=== PATIENT | male | born 1935 | race Caucasian/White ===

== ENCOUNTER → 2016-05-28 | Outpatient (CLI) | payer MEDICARE, BC | END | disposition home or self-care (01) | LOC: GMAJ 10:24 | PROVIDERS: ATTEND Family Medicine | DX: N40.0 Benign prostatic hyperplasia without lower urinary tract symptoms (principal) ==

== ENCOUNTER → 2016-06-27 | Outpatient (CLI) | payer MEDICARE | END | disposition home or self-care (01) | LOC: GMAJ 13:01 | PROVIDERS: ATTEND Family Medicine | DX: N30.00 Acute cystitis without hematuria (principal) ==

== ENCOUNTER 2016-09-03 07:56 | Inpatient (IN) | payer MEDICARE ==
--- NOTE | 2016-09-03 08:39 | RAD ---
EXAM DESCRIPTION: Hip,Right 2 Views CLINICAL HISTORY: right hip pain, ext rotation after fall COMPARISON: None. IMPRESSION: Single AP view of the right hip shows a severely comminuted intertrochanteric fracture of the proximal right femur with proximal displacement of the distal fracture fragment. No second orthogonal view is provided. Patient is somewhat rotated on this exam. Electronically signed by: Agusto Colorado MD 09/03/2016 8:40 AM CDT Workstation: [id number]
--- NOTE | 2016-09-03 08:40 | RAD ---
EXAM DESCRIPTION: Pelvis CLINICAL HISTORY: 81 years Male, right hip pain, ext rotation after fall COMPARISON: None. FINDINGS: Comminuted intratrochanteric fracture right proximal femur with moderate varus angulation at the fracture site. No displacement observed. Bones hypodense indicating osteopenia or osteoporosis. IMPRESSION: Comminuted angulated intertrochanteric right femur fracture Electronically signed by: Dandy Gee MD 09/03/2016 8:40 AM CDT
--- NOTE | 2016-09-03 08:40 | RAD ---
EXAM DESCRIPTION: Chest,1 View CLINICAL HISTORY: preop COMPARISON: January 16, 2016 IMPRESSION: Single AP portable upright view of the chest shows enlargement of the cardiac silhouette without pulmonary vascular congestion. Lungs are normally aerated without acute appearing infiltrate or consolidation. Tortuosity of the thoracic aorta with calcifications of the aortic arch are seen. No obvious pleural effusion or pneumothorax is seen. Electronically signed by: Agusto Colorado MD 09/03/2016 8:40 AM CDT
[2016-09-03] MEDS ORDERED: SOD CHL 3% *HYPERTONIC* 500ML 200 ML IVS ONE (08:50)
[2016-09-03] MEDS ORDERED: cefTRIAXone SODIUM 1 GM in SODIUM CHL 0.9% 50ML MIN-BAG+ 50 ML IVPB ONE (08:57)
[2016-09-03] MEDS ORDERED: cefTRIAXone SODIUM 1 GM VIAL ONE ×2 (09:05→19:14)
[2016-09-03] MEDS ORDERED: SODIUM CHL 0.9% 50ML MIN-BAG+ 50 ML IVPB ONE ×2 (09:05→19:14)
[2016-09-03] MEDS ORDERED: HYDROmorphone HCL INJ 2 MG/ML VIAL IV SCH (09:30)
--- NOTE | 2016-09-03 09:31 | ED.PDOC ---
History of Present Illness - General Chief Complaint: Lower Extremity Injury Stated Complaint: fall Time Seen by Provider: 09/03/16 08:02 Source: patient, family Exam Limitations: no limitations - History of Present Illness Initial Comments: The patient is a 81-year-old male presenting to the emergency r room secondary to a fall at home. He simply tripped and fell. He has some shortening and external rotation of the right lower extremity. Sensation is at his baseline. He appears to be vascularly intact. He does have significant pain. No other obvious injuries. He did have a significant urinary tract infection one month ago. Timing/Duration: 1 hour Severity: severe Improving Factors: immobilization Worsening Factors: movement Associated Symptoms: denies symptoms Allergies/Adverse Reactions: Allergies NO KNOWN ALLERGY Allergy (Verified 01/06/16 12:48) Home Medications: Ambulatory Orders Aspirin [Aspirin EC Low Dose] 81 mg PO DAILY 01/06/16 Lisinopril 20 mg PO BEDTIME 01/06/16 Metoprolol Tartrate 50 mg PO BIDFD 01/06/16 Omeprazole 40 mg PO DAILY 01/06/16 Pravastatin Sodium 10 mg PO DAILY 01/06/16 Tamsulosin [Flomax] 0.4 mg PO BEDTIME 01/06/16 Zolpidem Tartrate 10 mg PO BEDTIME 01/06/16 Review of Systems - Review of Systems Constitutional: States: no symptoms reported EENTM: States: no symptoms reported Respiratory: States: no symptoms reported Cardiology: States: no symptoms reported Gastrointestinal/Abdominal: States: no symptoms reported Genitourinary: States: frequency Musculoskeletal: States: see HPI, other - right hip pain. Skin: States: no symptoms reported Neurological: States: other - he is mildly drowsy from the morphine given by EMS Endocrine: States: no symptoms reported All other Systems: No Change from Baseline Past Medical History (General) - Patient Medical History Hx Seizures: No Hx Stroke: Yes - TIA Hx Dementia: No Hx Asthma: No Hx of COPD: No Hx Cardiac Disorders: No Hx Congestive Heart Failure: No Hx Pacemaker: No Hx Hypertension: Yes Hx Thyroid Disease: No Hx Diabetes: No Hx Gastroesophageal Reflux: Yes Hx Renal Disease: No Hx Cancer: No Hx of HIV: No Hx Hepatitis C: No Hx MRSA: No Surgical History: tonsillectomy - Vaccination History Hx Tetanus, Diphtheria Vaccination: No Hx Influenza Vaccination: No Hx Pneumococcal Vaccination: No - Social History Hx Tobacco Use: Yes Hx Chewing Tobacco Use: Yes - Quit 1 yr. ago Hx Alcohol Use: Yes Hx Substance Use: No Hx Substance Use Treatment: No Hx Depression: No Hx Physical Abuse: No Hx Emotional Abuse: No Hx Suspected Abuse: No Family Medical History - Family History Father Living Status: Cause of : stroke Hx Family Stroke: Yes - TIA Physical Exam - Physical Exam General Appearance: Alert, Obvious distress Eye Exam: bilateral normal Ears, Nose, Throat: hearing grossly normal, normal ENT inspection, normal pharynx Neck: non-tender, full range of motion, supple Respiratory: chest non-tender, lungs clear, normal breath sounds, no respiratory distress, no accessory muscle use Cardiovascular/Chest: normal peripheral pulses, regular rate, rhythm, no edema - occasional irregular beats Peripheral Pulses: radial,right: 2+, radial,left: 2+, dorsalis pedis,right: 2+, dorsalis pedis,left: 2+, posterior tibialis,right: 1+, posterior tibialis,left: 1+ Gastrointestinal/Abdominal: non tender, soft Rectal Exam: deferred Back Exam: normal inspection, no CVA tenderness, no vertebral tenderness Extremity: no pedal edema, no calf tenderness, normal capillary refill, other - severe pain with any movement of the right No skin laceration. There is external rotation and some shorteningof the right lower extremity. Neurologic: cryptozoologist II-XII nml as tested, no motor/sensory deficits, alert, normal mood/affect, oriented x 3 Skin Exam: normal color Comments: Vital Signs - 24 hr 09/03/16 08:12 Temperature 97.1 F L Pulse Rate [ 84 left brachial] Respiratory 18 Rate Blood Pressure 152/82 [left brachial] O2 Sat by Pulse 97 Oximetry Progress - Progress Progress: 09/03/16 09:48 the patient is a 81-year-old male presenting to the emergency room due to a fall at home giving him a right intertrochanteric femur fracture. He is neurovascularly intact at this time. He does have hyponatremia and is receiving 3% saline slowly for a total of 200 cc's. He will need to have a sodium rechecked. He will be allowed a full liquid diet for now. Surgery is planned for tomorrow. Occasional PVCs on EKG. Recommend telemetry monitoring today. Urinalysis is pending. He has had a recent infection. He did receive 1 g of Rocephin IV preoperatively today.. He has required narcotics for pain control. Admit for above issues and preparation for surgery tomorrow. Hold Plavix. - Results/Orders Results/Orders: Laboratory Tests 09/03/16 09/03/16 09/03/16 08:15 08:15 08:15 WBC 14.8 H RBC 4.69 L Hgb 15.5 Hct 44.8 MCV 95.5 H MCH 33.0 H MCHC 34.6 RDW 13.0 Plt Count 137 MPV 7.7 Absolute Neuts (auto) 13.80 H Absolute Lymphs (auto) 0.40 L Absolute Monos (auto) 0.60 Absolute Eos (auto) 0.00 Absolute Basos (auto) 0.00 Neutrophils % 92.8 H Lymphocytes % 2.6 L Monocytes % 4.4 Eosinophils % 0.0 L Basophils % 0.2 PT 12.9 H INR 1.140 PTT (SP) 25.8 Sodium 125 L Potassium 3.6 Chloride 92 L Carbon Dioxide 27 Anion Gap 9.6 L BUN 15 Creatinine 0.91 BUN/Creatinine Ratio 16.5 Random Glucose 109 H Serum Osmolality 252.9 L* Calcium 9.3 Total Bilirubin 1.6 H AST 27 ALT 17 Alkaline Phosphatase 64 Serum Total Protein 6.8 Albumin 4.0 Globulin 2.8 Albumin/Globulin Ratio 1.4 urinalysis is pending at this time. Chest x-ray shows mild cardiomegaly but no overt fluid overload and no infiltrates. Healing previous fractures. occasional PVCs on EKG. Normal axis. No acute ST segment changes concerning for ischemia when compared with previous EKGs. Normal [place] and QT intervals. Departure - Departure Clinical Impression: Hyponatremia Fracture of femur, intertrochanteric, closed Qualifiers: Encounter type: initial encounter Laterality: right Qualified Code(s): S72.141A - Displaced intertrochanteric fracture of right femur, initial encounter for closed fracture Disposition: Admit Patient Referrals: Alan Willis MD [Primary Care Provider] - 1-2 Weeks Home Medications: Ambulatory Orders Aspirin [Aspirin EC Low Dose] 81 mg PO DAILY 01/06/16 Lisinopril 20 mg PO BEDTIME 01/06/16 Metoprolol Tartrate 50 mg PO BIDFD 01/06/16 Omeprazole 40 mg PO DAILY 01/06/16 Pravastatin Sodium 10 mg PO DAILY 01/06/16 Tamsulosin [Flomax] 0.4 mg PO BEDTIME 01/06/16 Zolpidem Tartrate 10 mg PO BEDTIME 01/06/16 Decision To Admit - Decistion To Admit Decision to Admit Reason: Accidental Injury Decision to Admit Date: 09/03/16 Decision to Admit Time: 09:51
--- NOTE | 2016-09-03 09:52 | HP ---
SUPERVISING PHYSICIAN: Alan Willis M.D. CHIEF COMPLAINT: Right hip pain. HISTORY OF PRESENT ILLNESS: This is a 81 year-old male patient who was in his usual state of health when early this morning he woke up before his and had gotten some coffee. She was in the other room and he called her from his bedroom and asked if she would help him get up, that he had fallen onto the floor. She went into the bedroom and he was on the floor and she helped him get up to a sitting position in the bed. At this point he had no complaints of any pain. He had just slipped to the ground. As he was sitting on the end of the bed, he slipped off and fell onto his right side and at this point his stated he was in severe pain on the right hip. She called her son who then told her to call the ambulance and he was brought to the E. R. In the E. R., hip x-rays showed per radiology interpretation a severely comminuted intertrochanteric fracture of the proximal right femur with proximal displacement of the distal fracture fragment. His pelvis x-ray per radiology interpretation shows a comminuted angulated intertrochanteric right femur fracture. His chest x-ray shows enlargement of the cardiac silhouette without pulmonary vascular congestion. The lungs are normally aerated without acute- appearing infiltrate or consolidation, tortuosity of the thoracic aorta with calcifications of the aortic arch are seen. No obvious pleural effusions or pneumothorax is seen. His lab shows sodium 125 but he has a history of hyponatremia with a baseline of about 128. Potassium 3.6, chloride 92, BUN 15, creatinine 0.91, glucose 109, serum osmolality 252. He also had some leukocytosis with WBCs of 14.8, hemoglobin 15.5, hematocrit 44.8, platelet count was 137. He also had a urinary tract infection. He was given Ceftriaxone in the Emergency Room as well as Hydromorphone for pain. He also was nauseated several times and he received Zofran. Dr. Sapp called and he reviewed his case from the Emergency Room, and he agreed to be consulted on this. The patient was admitted to the hospital. PAST MEDICAL HISTORY: 1. Seasonal allergies. 2. Benign prostatic hypertrophy. 3. Gastroesophageal reflux disease. 4. Hyperlipidemia. 5. Hypertension. 6. Osteoarthritis. PAST SURGICAL HISTORY: 1. Tonsillectomy and adenoidectomy as a child. 2. Colonoscopy. ALLERGIES: CIPRO. FAMILY HISTORY: Noncontributory. SOCIAL HISTORY: He is retired. He is . He has 3 children. He quit smoking over 20 years ago and he quit chewing tobacco approximately 5 years ago. REVIEW OF SYSTEMS: Negative except as per the History of Present Illness. His states that earlier he did have some bilateral shoulder discomfort over the last few days. He actually took some Advil yesterday for it. PHYSICAL EXAMINATION: VITAL SIGNS: He is afebrile, pulse rate 71, blood pressure 125/62, respiratory rate 18, O2 sats are 95% on room air. GENERAL: This is a 81 year-old male patient who is lying in his hospital bed. At this point he is in no acute distress. HEENT: Normocephalic and atraumatic. Pupils are equal and reactive. Oropharynx is clear. NECK: Supple without mass. There is no jugular venous distention. CHEST: Essentially clear to auscultation bilaterally. There is equal rise and fall of the chest with inspiration and expiration. CARDIOVASCULAR: Regular rate and rhythm. ABDOMEN: Soft, nondistended, non-tender. Bowel sounds are positive. EXTREMITIES: No cyanosis, clubbing or edema. Bilateral pedal pulses are palpable at +2. Right hip is slightly rotated outward and it is tender to palpation. NEUROLOGIC: He is awake, alert and oriented times three. LABORATORY: Labs and films are as per the History of Present Illness. ASSESSMENT: 1. Intertrochanteric fracture of the right femur. 2. Chronic hyponatremia with a baseline sodium of 128. 3. Urinary tract infection. 4. Leukocytosis most likely from urinary tract infection but maybe worsened due to the fracture. 5. Benign prostatic hypertrophy. 6. Gastroesophageal reflux disease. 7. Hypertension. 8. Hyperlipidemia. PLAN: We will admit the patient to the hospital. I have initiated admission orders. We will also initiate Dr. Sapp's preoperative orders. He received some hypertonic saline in the Emergency Room and I will presently put him on some D5 NS with 20 of K at 125. I will repeat his labs in the morning. He can have a regular diet at this time, but I will make him NPO at midnight. He has a Bustamante catheter in place. I have consulted Dr. Sapp. I will give him Rocephin for his urinary tract infection. I have also ordered some blood cultures to make sure there is not something else going on. Otherwise we will continue to monitor the patient closely and followup as needed. Dr. Willis is the collaborating physician and available for consultation. #[id number] [facility]
[2016-09-03] MEDS ORDERED: ONDANSETRON INJ 4 MG/2 ML VIAL IV PRN (10:39)
[2016-09-03] MEDS ORDERED: HYDROmorphone HCL INJ 2 MG/ML VIAL ONE ×3 (10:58→23:14)
[2016-09-03] MEDS ORDERED: HYDROmorphone HCL INJ 2 MG/ML VIAL IV ONE (11:00)
[2016-09-03] MEDS ORDERED: ONDANSETRON INJ 4 MG/2 ML VIAL IV ONE (11:00)
[2016-09-03] MEDS: ORPHENADRINE CITRATE 30 MG/ML AMP IV ONE ×2 (12:38→15:18)
[2016-09-03] MEDS ORDERED: ORPHENADRINE CITRATE 30 MG/ML AMP ONE (15:16)
[2016-09-03] MEDS ORDERED: SODIUM CHLORIDE 0.9% (FLUSH) 10 ML SYG IV PRN (15:38)
[2016-09-03] MEDS ORDERED: VANCOMYCIN HCL INJ 1,000 MG in SODIUM CHLORIDE 0.9% 250ML 250 ML IVPB ONE (16:21)
[2016-09-03] MEDS ORDERED: ceFAZolin SODIUM 2 GM in SODIUM CHLORIDE 0.9% 100ML 100 ML IVPB ONE (16:21)
[2016-09-03] MEDS: HYDROmorphone HCL INJ 2 MG/ML VIAL IV PRN ×2 (16:25→23:15)
[2016-09-03] MEDS: PANTOPRAZOLE SODIUM IV 40 MG VIAL IV SCH (16:25)
[2016-09-03] MEDS: IV SET AND CAP CHANGE INJ INJ SCH (17:09)
[2016-09-03] MEDS: cefTRIAXone SODIUM 1 GM in SODIUM CHL 0.9% 50ML MIN-BAG+ 50 ML IVPB SCH (20:13)
[2016-09-04] MEDS: KCL 20MEQ/D5NS 1,000 ML IVS PRN ×3 (00:27→21:31)
[2016-09-04] MEDS ORDERED: HYDROmorphone HCL INJ 2 MG/ML VIAL ONE (02:21)
[2016-09-04] MEDS: HYDROmorphone HCL INJ 2 MG/ML VIAL IV PRN ×7 (02:33→20:28)
[2016-09-04] MEDS ORDERED: ePHEDrine SULF 50 MG/ML ONE (07:00)
[2016-09-04] MEDS ORDERED: PROPOFOL 200 MG/20 ML VIAL IV ONE (07:00)
[2016-09-04] MEDS ORDERED: SODIUM CHLORIDE 0.9% 50 ML VIAL ONE (07:00)
[2016-09-04] MEDS ORDERED: OMEPRAZOLE CAP 20 MG CAP PO ONE (07:41)
[2016-09-04] MEDS ORDERED: METOPROLOL TARTRATE 50 MG TAB PO ONE (07:43)
[2016-09-04] MEDS ORDERED: fentaNYL CITRATE INJ 50 MCG/ML AMP ONE (07:47)
[2016-09-04] MEDS ORDERED: SODIUM CHLORIDE 0.9% 1000ML 1,000 ML ONE ×2 (07:48→11:56)
[2016-09-04] MEDS ORDERED: SODIUM CHL 0.9% 50ML MIN-BAG+ 50 ML IVPB ONE ×2 (07:48→19:43)
[2016-09-04] MEDS ORDERED: cefTRIAXone SODIUM 1 GM VIAL ONE ×2 (07:49→19:43)
[2016-09-04] MEDS ORDERED: ceFAZolin SODIUM 1 GM VIAL ONE ×2 (07:50→09:10)
[2016-09-04] MEDS ORDERED: VANCOMYCIN HCL INJ 1,000 MG VIAL IVPB ONE ×2 (07:51→09:10)
[2016-09-04] MEDS ORDERED: SODIUM CHLORIDE 0.9% 250ML 250 ML ONE (07:53)
[2016-09-04] MEDS ORDERED: SODIUM CHLORIDE 0.9% 50ML 50 ML ONE (07:54)
[2016-09-04] MEDS ORDERED: SODIUM CHLORIDE 0.9% 100ML 100 ML IVPB ONE (07:56)
[2016-09-04] MEDS ORDERED: SODIUM CHLORIDE 0.9% IVPB SCH (09:00)
[2016-09-04] MEDS ORDERED: CEFTRIAXONE SODIUM IVPB SCH (09:00)
[2016-09-04] MEDS: cefTRIAXone SODIUM 1 GM in SODIUM CHL 0.9% 50ML MIN-BAG+ 50 ML IVPB SCH ×2 (10:09→20:32)
[2016-09-04] MEDS ORDERED: BUPIVACAINE 0.25% W/EPI 50 ML VIAL INJ ONE (10:10)
[2016-09-04] MEDS ORDERED: BISACODYL SUPPOSITORY 10 MG PR PRN (10:55)
[2016-09-04] MEDS ORDERED: BENZOCAINE-MENTH LOZ (CEPACOL) 1 EA LOZ MT PRN (10:55)
[2016-09-04] MEDS ORDERED: ALUMINUM & MAGNESIUM HYDROXIDE 30 ML UD PO PRN (10:55)
[2016-09-04] MEDS ORDERED: ACETAMINOPHEN 325 MG TAB PO PRN (10:55)
[2016-09-04] MEDS ORDERED: ZOLPIDEM TARTRATE 5 MG TAB PO PRN (10:55)
[2016-09-04] MEDS ORDERED: ENOXAPARIN SODIUM 40 MG/0.4 ML SYG SUBCU SCH (11:00)
--- NOTE | 2016-09-04 11:34 | OP ---
DATE OF PROCEDURE: 09/04/16 PREOPERATIVE DIAGNOSIS: 1. Right hip fracture. POSTOPERATIVE DIAGNOSIS: 1. Right hip fracture. PROCEDURE: 1. Gamma nail, right hip. SURGEON: Aneesh Sapp MD. HAND FRAME SURGICAL ELASTIC KNITTER: Omega Vasquez CST, SA-C. ANESTHESIA: General. COMPLICATIONS: None. FINDINGS: Intertrochanteric fracture of the right hip. INDICATION: Mr. Moser has a history of falling the day of presentation. He had the acute onset of pain at that point. X-rays in the Emergency Room revealed an intertrochanteric fracture and he was admitted. I was consulted and I discussed with him and his the risks, benefits and alternatives to operative therapy. After that discussion, informed consent was obtained for Gamma nailing. PROCEDURE: The patient was brought to the Operating Room and placed in the supine position. General anesthesia was administered and the patient was placed on the fracture table. The fracture was provisionally reduced under fluoroscopic imaging and after reduction, the leg and hemipelvis were sterilely prepped and draped. An incision was made just proximal to the greater trochanter and dissection was carried through the iliotibial band and down to the greater trochanter. A starting pin was placed and a one-step reamer was used to open the femoral canal. A 125 degree angled Gamma nail was inserted into the canal to the appropriate level. A guide pin was placed from the lateral cortex into the femoral head. The appropriate length compression screw was measured and inserted with the placement guided under direct imaging. Following that, the distal locking screw was drilled, measured, and placed under imaging. The proximal locking screw was placed through the outrigger into the top of the nail and the outrigger removed. The final construct was imaged and the wounds were thoroughly irrigated, followed by closure with Monocryl suture. Sterile dressings were placed. The patient was awoken from anesthesia and taken to the Recovery Room. POSTOPERATIVE INSTRUCTIONS: He will be partial weight-bearing on postoperative day 1. [facility][id number] [facility]
--- NOTE | 2016-09-04 12:41 | RAD ---
EXAM DESCRIPTION: Hip,Right 2 Views CLINICAL HISTORY: post-op COMPARISON: None Available. TECHNIQUE: AP/frog leg lateral FINDINGS: Right hip is internally fixed with a short intramedullary tod and interlocking threaded pin into the femoral head with a separate lesser trochanteric fragment that is not internally fixed. Alignment is anatomic with the threaded pin well-positioned in the central femoral head. IMPRESSION: Satisfactory internal fixation of the right hip with separate lesser trochanteric fragment. Electronically signed by: Joey Chapin MD 09/04/2016 12:41 PM CDT
[2016-09-04] MEDS: PANTOPRAZOLE SODIUM IV 40 MG VIAL IV SCH (16:18)
--- NOTE | 2016-09-04 16:37 | PN ---
SUPERVISING PHYSICIAN: Joey Turner MD DATE: 09/04/16 SUBJECTIVE: The patient is being seen postoperatively after a gamma nail to the right hip performed earlier today. He is awake and alert. He has no complaints of shortness of breath, coughing, chest pain, abdominal pain, nausea or vomiting. His only complaint is that he has pain to that right hip but the pain is being well controlled with the pain medication he is receiving right now. OBJECTIVE: VITAL SIGNS: He is afebrile. Heart rate is 91, blood pressure 142/81, respiratory rate 16. 02 saturation 95%. CHEST: Clear to auscultation bilaterally. CARDIAC: Regular rate and rhythm. ABDOMEN soft, nondistended, non-tender. Bowel sounds are somewhat hypoactive. EXTREMITIES: Bilateral pedal pulses are palpable at +2. He has a dressing to his right lateral hip that is dry and intact. NEUROLOGICAL: He is awake, alert, and oriented x3. LABORATORY: WBC 10.2, hemoglobin 12.8, hematocrit 37.5. Platelet count 120,000 , sodium 130 but his baseline sodium is about 128, potassium 4.2, chloride 97, carbon dioxide 30, BUN 13, creatinine 0.62. Preliminary urine culture shows gram negative rods. All other labs and films have been reviewed via the EMR. ASSESSMENT: 1. Intertrochanteric fracture of the right femur.status post gamma nail to the right hip, postoperative day #O, surgical intervention being performed by Dr. Sapp, orthopedic surgeon. 2. Chronic hyponatremia with a baseline sodium of 128. 3. Urinary tract infection, present culture showing gram positive rods. 4. Leukocytosis most likely from urinary tract infection that has now stabilized. 5. Benign prostatic hypertrophy. 6. Gastroesophageal reflux disease. 7. Hypertension. 8. Hyperlipidemia. PLAN: We will continue present supportive care. All of his home medications have been started. I will repeat his routine lab in the morning. I will defer all his orthopedic issues to Dr. Sapp. We will start physical therapy for strengthening and conditioning tomorrow. I have encouraged good pulmonary toilet. Dr. Turner is the collaborating physician available for consultation. #[id number] [facility]
[2016-09-04] MEDS: METOPROLOL TARTRATE 50 MG TAB PO SCH (16:38)
--- NOTE | 2016-09-04 16:41 | RAD ---
EXAM DESCRIPTION: Pelvis,2 or More Views CLINICAL HISTORY: post op COMPARISON: September 03, 2016 IMPRESSION: AP neutral and frog-leg lateral views of the pelvis are obtained. Exam shows placement of intramedullary tod with distal locking screw and gamma nail fixation of a comminuted intertrochanteric fracture of the right hip. Fractures appear in improved anatomic alignment. There is mild displacement of the lesser trochanter fracture. Soft tissue emphysema from recent surgery is seen. Mild osteoarthritic changes of the hips are seen bilaterally. Electronically signed by: Agusto Colorado MD 09/04/2016 4:41 PM CDT
[2016-09-04] MEDS ORDERED: TAMSULOSIN 0.4 MG CAP ONE (19:43)
[2016-09-04] MEDS ORDERED: ENOXAPARIN SODIUM 30 MG/0.3 ML SYG SUBCU ONE (19:43)
[2016-09-04] MEDS ORDERED: ATORVASTATIN 20 MG TAB PO ONE (19:43)
[2016-09-04] MEDS: TAMSULOSIN 0.4 MG CAP PO SCH (20:30)
[2016-09-04] MEDS: LISINOPRIL 10 MG TAB PO SCH (20:35)
[2016-09-04] MEDS: ENOXAPARIN SODIUM 30 MG/0.3 ML SYG SUBCU SCH (22:55)
[2016-09-05] MEDS: KCL 20MEQ/D5NS 1,000 ML IVS PRN (06:07)
[2016-09-05] MEDS: METOPROLOL TARTRATE 50 MG TAB PO SCH ×2 (07:54→17:09)
[2016-09-05] MEDS: HYDROmorphone HCL INJ 2 MG/ML VIAL IV PRN ×3 (07:55→18:39)
--- NOTE | 2016-09-05 07:57 | PN ---
DATE: 09/05/16 SUBJECTIVE: Mr. Moser is doing well. He has some pain that is about at a 3. OBJECTIVE: Afebrile. Vital signs stable. Dressings are clean, dry, and intact. ASSESSMENT: Status post Gamma nail. PLAN: The plan at this point is for him to begin toe-touch weight-bearing today. #[id number] [facility]
[2016-09-05] MEDS ORDERED: cefTRIAXone SODIUM 1 GM VIAL ONE ×2 (08:41→19:26)
[2016-09-05] MEDS ORDERED: SODIUM CHL 0.9% 50ML MIN-BAG+ 50 ML IVPB ONE ×2 (08:41→19:25)
[2016-09-05] MEDS: cefTRIAXone SODIUM 1 GM in SODIUM CHL 0.9% 50ML MIN-BAG+ 50 ML IVPB SCH ×2 (08:53→20:30)
[2016-09-05] MEDS ORDERED: NON-FORMULARY MEDICATION 1 EA MIS (Rosuvastatin Calcium [Crestor] 10 MG) PO SCH (09:00)
[2016-09-05] MEDS: ATORVASTATIN 20 MG TAB PO SCH (09:43)
[2016-09-05] MEDS: CLOPIDOGREL 75 MG TAB PO SCH (09:43)
[2016-09-05] MEDS: ENOXAPARIN SODIUM 30 MG/0.3 ML SYG SUBCU SCH ×2 (11:42→23:21)
[2016-09-05] MEDS: SODIUM CHLORIDE 0.9% (FLUSH) 10 ML SYG IV SCH ×2 (11:42→20:30)
--- NOTE | 2016-09-05 13:44 | PN ---
SUPERVISING PHYSICIAN: Alan Willis MD DATE: 09/05/16 SUBJECTIVE: The patient is laying in bed this morning just having finished working with physical therapy. He does remain confused, but very pleasant. He has been trying to pull his Bustamante out and his IVs at times. He remains afebrile. OBJECTIVE: VITAL SIGNS: Temperature 98.4. Pulse 82. Blood pressure 148/66. Respirations 16. Saturation 95% on room air. I&Os show positive balance of 2896 with 4121 in, 1225 out. Weight 88.3. Kg. CHEST: Lungs clear to auscultation bilaterally. HEART: Regular rate and rhythm. ABDOMEN: Soft, nontender. Positive bowel sounds. EXTREMITIES: There is dressing overlying the right hip, which is clean and dry. Pulses distally are strong bilaterally at 2+. NEUROLOGIC: Alert and awake, but confused to location. LABORATORY: Hemoglobin 11.1, hematocrit 32.0, platelet count 107,000, white count 10.8, differential showing a left shift. Chemotherapy-responsive show continued hyponatremia at 126, potassium normal at 3.9, BUN 9, creatinine 0.5, glucose 129, osmolality 253. Liver functions within normal limits for just a slightly elevated total bilirubin at 1.1. MICROBIOLOGY: Final urine culture results showed Escherichia coli from the urine that was mcdermott sensitive with the patient being on Rocephin. Blood cultures remain negative, 2 sets after 24 hours. ASSESSMENT: 1. Intertrochanteric fracture of the right femur.status post gamma nail to the right hip, postoperative day #1, surgical intervention being performed by Dr. Sapp, orthopedic surgeon. 2. Chronic hyponatremia with a baseline sodium of 128, appearing to be stable. 3. Urinary tract infection, final culture resulting showing Escherichia coli that was mcdermott sensitive, the patient remaining on antibiotics to include Rocephin. 4. Leukocytosis, secondary to underlying urinary tract infection and acute fracture, now resolved. 5. Benign prostatic hypertrophy. 6. Gastroesophageal reflux disease. 7. Hypertension. 8. Hyperlipidemia. PLAN: We will continue to follow the patient medically as he progresses through his physical therapy and strengthening efforts. We will continue with pulmonary toiletry to prevent complications. The plan is to remove the Bustamante today as he has been trying to remove this and to prevent any further trauma. We will closely monitor and should he show problems voiding, certainly we will need to replace the Bustamante. The anticipation is that the patient will go to Swing Bed likely Friday or Friday. Until then, we will continue to monitor the patient closely and treat appropriately. [facility][id number] [facility]
[2016-09-05] MEDS: PANTOPRAZOLE SODIUM IV 40 MG VIAL IV SCH (16:52)
[2016-09-05] MEDS: TAMSULOSIN 0.4 MG CAP PO SCH (20:30)
[2016-09-05] MEDS: LISINOPRIL 10 MG TAB PO SCH (20:30)
[2016-09-06] MEDS: HYDROmorphone HCL INJ 2 MG/ML VIAL IV PRN ×5 (00:24→13:45)
[2016-09-06] MEDS ORDERED: cefTRIAXone SODIUM 1 GM VIAL ONE ×2 (07:56→19:07)
[2016-09-06] MEDS ORDERED: SODIUM CHL 0.9% 50ML MIN-BAG+ 50 ML IVPB ONE ×2 (07:56→19:07)
[2016-09-06] MEDS: METOPROLOL TARTRATE 50 MG TAB PO SCH ×2 (08:15→17:19)
[2016-09-06] MEDS: cefTRIAXone SODIUM 1 GM in SODIUM CHL 0.9% 50ML MIN-BAG+ 50 ML IVPB SCH ×2 (09:05→20:13)
[2016-09-06] MEDS: SODIUM CHLORIDE 0.9% (FLUSH) 10 ML SYG IV SCH ×2 (09:06→20:13)
[2016-09-06] MEDS: ATORVASTATIN 20 MG TAB PO SCH (09:06)
[2016-09-06] MEDS: CLOPIDOGREL 75 MG TAB PO SCH (09:06)
[2016-09-06] MEDS: ENOXAPARIN SODIUM 30 MG/0.3 ML SYG SUBCU SCH ×2 (11:38→23:57)
[2016-09-06] MEDS: MAGNESIUM HYDROXIDE 30 ML UD PO PRN (11:38)
--- NOTE | 2016-09-06 13:36 | PN ---
SUPERVISING PHYSICIAN: Alan Willis MD DATE: 09/06/16 SUBJECTIVE: The patient is doing much better today. He is much more alert and oriented. His says he is back to his baseline status. He has been afebrile. He says his pain has been fairly well controlled. He has actually be up to the chair once. OBJECTIVE: VITAL SIGNS: Temperature 97.8. Pulse 89. Blood pressure 148/76. Respirations 18. Saturation 99% on room air. CHEST: Lungs clear to auscultation bilaterally. HEART: Regular rate and rhythm. ABDOMEN: Soft, nontender. Positive bowel sounds. EXTREMITIES: No cyanosis, clubbing or edema. Right hip has Steri-Strips in place with no obvious drainage and appears to be healing without any complications. Pulses distally are strong. Capillary refill is brisk. NEUROLOGIC: Alert and oriented times three today. LABORATORY: Chemistries show persistent low sodium of 126 with potassium 4.0, BUN 13, creatinine 0.66. Glucose 113. Osmolality remains low at 254. Calcium 8.4. MICROBIOLOGY: Blood culture remain negative after 48 hours and final culture results as mentioned previously showed E. coli that was mcdermott sensitive. ASSESSMENT: 1. Intertrochanteric fracture of the right femur.status post Gamma nail to the right hip, postoperative day #2, surgical intervention being performed by Dr. Sapp, orthopedic surgeon. 2. Chronic hyponatremia with a baseline sodium of 128, appearing to be stable. 3. Urinary tract infection, final culture resulting showing Escherichia coli that was mcdermott sensitive, the patient remaining on antibiotics to include Rocephin. 4. Leukocytosis, resolved, felt to be secondary to underlying acute trauma and underlying urinary tract infection. 5. Benign prostatic hypertrophy without any complications. 6. Gastroesophageal reflux disease. 7. Hypertension. 8. Hyperlipidemia. PLAN: We will continue to follow the patient as he progresses through his rehabilitation efforts. His Bust[place]ante catheter was removed without any complications and he has been able to urinate without any trouble. He remained on antibiotic therapy accordingly with anticipation of going to Swing Bed more likely on Friday. Once on Swing Bed, given the mcdermott sensitivity of the E. coli in his urine, he can be transitioned to p.o. medications. Until then, we will continue with parenteral antibiotic to include Rocephin. Until discharge to Swing Bed, we will continue to monitor the patient closely and treat appropriately. [facility][id number] [facility]
[2016-09-06] MEDS ORDERED: HYDROcodone 5MG/APAP 325MG 1 EA TAB PO PRN (13:49)
[2016-09-06] MEDS ORDERED: HYDROcodone 5MG/APAP 325MG 1 EA TAB ONE (13:57)
[2016-09-06] MEDS: IV SET AND CAP CHANGE INJ INJ SCH (17:20)
[2016-09-06] MEDS: HYDROcodone 7.5MG/APAP 325MG 1 EA TAB PO PRN (19:29)
[2016-09-06] MEDS: TAMSULOSIN 0.4 MG CAP PO SCH (20:13)
[2016-09-06] MEDS: LISINOPRIL 10 MG TAB PO SCH (20:13)
[2016-09-06] MEDS: CYCLOBENZAPRINE HCL 10 MG TAB PO PRN (21:00)
[2016-09-07] MEDS: HYDROcodone 7.5MG/APAP 325MG 1 EA TAB PO PRN ×5 (00:03→23:48)
[2016-09-07] MEDS ORDERED: SODIUM CHL 0.9% 50ML MIN-BAG+ 50 ML IVPB ONE ×2 (07:54→19:33)
[2016-09-07] MEDS ORDERED: cefTRIAXone SODIUM 1 GM VIAL ONE ×2 (07:55→19:33)
[2016-09-07] MEDS: METOPROLOL TARTRATE 50 MG TAB PO SCH ×2 (08:10→17:00)
[2016-09-07] MEDS: CYCLOBENZAPRINE HCL 10 MG TAB PO PRN ×2 (08:10→20:00)
[2016-09-07] MEDS: ATORVASTATIN 20 MG TAB PO SCH (08:35)
[2016-09-07] MEDS: CLOPIDOGREL 75 MG TAB PO SCH (08:35)
[2016-09-07] MEDS: cefTRIAXone SODIUM 1 GM in SODIUM CHL 0.9% 50ML MIN-BAG+ 50 ML IVPB SCH ×2 (08:35→20:56)
[2016-09-07] MEDS: SODIUM CHLORIDE 0.9% (FLUSH) 10 ML SYG IV SCH ×2 (09:04→20:56)
[2016-09-07] MEDS: PANTOPRAZOLE SODIUM TAB 40 MG PO SCH (10:54)
[2016-09-07] MEDS: ENOXAPARIN SODIUM 30 MG/0.3 ML SYG SUBCU SCH ×2 (10:54→23:22)
--- NOTE | 2016-09-07 14:04 | PN ---
DATE: 09/06/16 SUBJECTIVE: He is doing well. He is having moderate pain. OBJECTIVE: He is afebrile. Vital signs are stable. Wound is clean. There are no signs or symptoms of infection. ASSESSMENT: 1. Status post gamma nail PLAN: The plan at this point is for continued partial weightbearing. We will progress that as both symptoms and healing improve. [facility][id number] [facility]
--- NOTE | 2016-09-07 14:18 | PN ---
DATE: 09/07/16 SUBJECTIVE: Mr. Moser is doing much better today. He is up in the chair and pain is much improved. OBJECTIVE: He is afebrile. Vital signs are stable. Wounds are clean. There are no signs or symptoms of infection. ASSESSMENT: 1. Status post gamma nail. PLAN: The plan at this point is for him to continue on with physical therapy. He will likely be transitioned to Swing Bed in the next day or 2. #[id number] [facility]
[2016-09-07] MEDS ORDERED: MAGNESIUM HYDROXIDE 30 ML UD PO ONE (14:45)
--- NOTE | 2016-09-07 15:17 | PN ---
DATE: 09/07/16 SUBJECTIVE: The patient is resting but does appear to be somewhat pale. He is able to tolerate his third day of physical therapy though still having a fair amount of pain. He has noticeable bruising and ecchymosis around his right groin, sacrum and pubic areas. He has not had a bowel movement since surgery. He is adding salt to his diet and seems to be tolerating it well. He continues on IV antibiotics for 1 more day for his urinary tract infection with Escherichia coli. OBJECTIVE: Afebrile. Pulse 87, blood pressure 158/82, pulse oximetry 96% on room air. Intake and output shows a negative 1400 mL of excessive urine output , but even with this it is of note that his serum osmolality has dropped to its lowest level since admission. Lab studies also show sodium is 125, potassium 4.1. Kidney function is good. Glucose 111. His hemoglobin has dropped from 15.5 at the time of his injury down to 9.6 this morning suggesting a significant blood loss within the tissues of his acute hip fracture. He has tolerated the repair quite well but we are concerned at the present time for his ability to participate fully with rehab activities if his blood count continues to diminish. ASSESSMENT: 1. Intertrochanteric fracture of the right femur requiring surgical intervention by Dr. Sapp using a gamma nail for repair currently postoperative day number 3. 2. Chronic hyponatremia with a baseline sodium of 128, stable with outpatient evaluation continuing, but to this is added p.o. fluid restrictions and gentle loop diuresis and increased sodium in diet. 3. Urinary tract infection showing Escherichia coli with generalized sensitivity with the patient on Ceftriaxone. 4. Leukocytosis, improved. 5. Significant anemia probably blood loss within the fracture site requiring reevaluation in the morning to see if he will require red blood cells to assist with his rehab potential. 6. History of benign prostatic hypertrophy. 7. History of gastroesophageal reflux disease. 8. History of hypertension. 9. History of hyperlipidemia. PLAN: Continue with fluid restrictions, gentle loop diuresis and increased sodium in diet. Try Milk of Magnesia. Check occult blood in the stool and see if it is present. Continue with Protonix. Continue with 1 more day of the Ceftriaxone for urinary tract infection and reevaluate in the morning to ascertain the patient's ability to participate in rehab because of the significant blood loss noted in his hip fracture. #[id number] [facility]
[2016-09-07] MEDS: FUROSEMIDE 40 MG TAB PO SCH (15:48)
[2016-09-07] MEDS: TAMSULOSIN 0.4 MG CAP PO SCH (20:41)
[2016-09-07] MEDS: LISINOPRIL 10 MG TAB PO SCH (20:41)
[2016-09-08] MEDS: HYDROcodone 7.5MG/APAP 325MG 1 EA TAB PO PRN ×3 (05:52→20:58)
[2016-09-08] MEDS: PANTOPRAZOLE SODIUM TAB 40 MG PO SCH (06:02)
[2016-09-08] MEDS: METOPROLOL TARTRATE 50 MG TAB PO SCH ×2 (08:16→17:03)
[2016-09-08] MEDS ORDERED: cefTRIAXone SODIUM 1 GM VIAL ONE ×2 (08:56→19:59)
[2016-09-08] MEDS ORDERED: SODIUM CHL 0.9% 50ML MIN-BAG+ 50 ML IVPB ONE ×2 (08:56→19:59)
[2016-09-08] MEDS: ATORVASTATIN 20 MG TAB PO SCH (09:05)
[2016-09-08] MEDS: CLOPIDOGREL 75 MG TAB PO SCH (09:05)
[2016-09-08] MEDS: cefTRIAXone SODIUM 1 GM in SODIUM CHL 0.9% 50ML MIN-BAG+ 50 ML IVPB SCH ×2 (09:05→20:57)
[2016-09-08] MEDS: CYCLOBENZAPRINE HCL 10 MG TAB PO PRN (09:05)
[2016-09-08] MEDS: FUROSEMIDE 40 MG TAB PO SCH (09:05)
[2016-09-08] MEDS: SODIUM CHLORIDE 0.9% (FLUSH) 10 ML SYG IV SCH ×2 (09:16→20:56)
[2016-09-08] MEDS: ENOXAPARIN SODIUM 30 MG/0.3 ML SYG SUBCU SCH ×2 (11:28→23:35)
[2016-09-08] MEDS: MAGNESIUM HYDROXIDE 30 ML UD PO PRN (12:44)
[2016-09-08] MEDS ORDERED: BISACODYL TAB 5 MG TAB PO ONE (16:47)
[2016-09-08] MEDS ORDERED: MAGNESIUM HYDROXIDE 30 ML UD PO ONE (17:00)
--- NOTE | 2016-09-08 18:51 | PN ---
DATE: 09/08/16 SUBJECTIVE: The patient is sitting up in the bed. He was coughing and had sudden onset of severe pain in his right lateral chest wall suggesting a slight crack in one of his ribs from the coughing maneuver. Still has some swelling in his right leg compared to the left. Still hurts when he bears weight but is encouraged to continue with his ongoing rehabilitation. OBJECTIVE: Afebrile, pulse 87, blood pressure 156/68, pulse oximetry 94% room air. Still with a negative fluid balance which is reflected by the sodium coming up a little bit to 127 and osmolality up to 256. BUN is 15. Hemoglobin has stabilized at 9.4 with it being 9.6 yesterday. Further rehab is scheduled for tomorrow and whether his hemoglobin is going to be lower and whether he can tolerate it hemodynamically is to be determined in the morning as to whether he will require 2 units of red blood cells to allow rehab to continue HEART: Regular. LUNGS: Clear. ABDOMEN: Soft. No bowel movement since surgery. This is even after several doses of Milk of Magnesia on a daily basis. ASSESSMENT: 1. Intertrochanteric fracture of the right femur requiring surgical intervention by Dr. Sapp using a gamma nail for repair, currently postoperative day number 4. 2. Chronic hyponatremia with a baseline sodium of 128, stable being treated with fluid restrictions and gentle loop diuresis, and increase sodium in the diet. Evaluation eventually may benefit from level of antidiuretic hormone in the blood. 3. Urinary tract infection with Escherichia coli on culture with generalized sensitivity being treated with Ceftriaxone. 4. Leukocytosis, improved. 5. Anemia with slight worsening, yet probably secondary to blood loss at the fracture site with reevaluation in the morning to see if it is going to hinder his rehab potential. 6. History of benign prostatic hypertrophy. 7. History of gastroesophageal reflux disease. 8. History of hypertension. 9. History of hyperlipidemia. 10. History of possible acute right lateral rib cracked from a significant cough. PLAN: Will continue with SMOOTH hose to help reduce some of the swelling in his right lower extremity and continue with compression device to the lower extremities. Reevaluate lab study in the morning. Try Dulcolax tablet at this time to see if it will help with bowel movements. Reevaluate. Consider Swing Bed when hemoglobin is stabilized. #[id number] [facility]
[2016-09-08] MEDS: TAMSULOSIN 0.4 MG CAP PO SCH (20:58)
[2016-09-08] MEDS: LISINOPRIL 10 MG TAB PO SCH (20:58)
[2016-09-09] MEDS: HYDROcodone 7.5MG/APAP 325MG 1 EA TAB PO PRN ×2 (06:08→11:30)
[2016-09-09] MEDS: PANTOPRAZOLE SODIUM TAB 40 MG PO SCH (06:11)
[2016-09-09] MEDS ORDERED: SODIUM CHL 0.9% 50ML MIN-BAG+ 50 ML IVPB ONE (07:16)
[2016-09-09] MEDS ORDERED: cefTRIAXone SODIUM 1 GM VIAL ONE (07:17)
[2016-09-09] MEDS: METOPROLOL TARTRATE 50 MG TAB PO SCH (07:40)
[2016-09-09] MEDS: cefTRIAXone SODIUM 1 GM in SODIUM CHL 0.9% 50ML MIN-BAG+ 50 ML IVPB SCH (08:55)
[2016-09-09] MEDS: CLOPIDOGREL 75 MG TAB PO SCH (08:56)
[2016-09-09] MEDS: ATORVASTATIN 20 MG TAB PO SCH (08:56)
[2016-09-09] MEDS: FUROSEMIDE 40 MG TAB PO SCH (08:56)
[2016-09-09] MEDS: SODIUM CHLORIDE 0.9% (FLUSH) 10 ML SYG IV SCH (08:59)
[2016-09-09] MEDS ORDERED: BIFIDOBACTERIUM INFANTIS 4 MG CAP PO SCH (09:00)
[2016-09-09] MEDS: ENOXAPARIN SODIUM 30 MG/0.3 ML SYG SUBCU SCH (11:30)
[2016-09-09 15:07] VITALS: BP 128/70; TEMP 97.4; O2SAT 94
[2016-09-09] MEDS ORDERED: BISACODYL TAB 5 MG TAB PO ONE ×2 (15:23→15:31)
[2016-09-09] MEDS: MAGNESIUM HYDROXIDE 30 ML UD PO PRN (15:26)
[2016-09-09] MEDS: IV SET AND CAP CHANGE INJ INJ SCH (15:33)
[2016-09-09] MEDS ORDERED: MAGNESIUM HYDROXIDE 30 ML UD PO ONE (15:40)
--- NOTE | 2016-09-10 08:27 | DS ---
DISCHARGE FROM ACUTE CARE/HISTORY AND PHYSICAL FOR SWING BED DISCHARGE DIAGNOSES: 1. Acute intertrochanteric fracture of the right femur requiring surgical intervention by by Dr. Sapp with repair using a gamma nail, current postoperative day #5. 2. Chronic hyponatremia with a baseline sodium of 128 currently stable, yet continued treatment with p.o. fluid restrictions, gentle loop diuresis and salt in the diet, possibly related to a chronic elevated antidiuretic hormone. 3. Urinary tract infection with E. coli on culture treated for a complete course with Ceftriaxone now to be observed. 4. Leukocytosis, improved. 5. Postoperative anemia noted to be somewhat progressive, yet the patient is hemodynamically stable with anemia secondary to blood loss at the fracture site as evaluation continues. 6. History of benign prostatic hypertrophy. 7. History of gastroesophageal reflux disease. 8. History of hypertension. 9. History of hyperlipidemia. 10. History of a possible acute right lateral rib fracture from a significant cough onset yesterday. HISTORY OF PRESENT ILLNESS: This 81 year-old white male was apparently admitted to the hospital on 09/03/16 after falling at home landing on his right hip and suffering an acute intertrochanteric fracture. It was comminuted and required some stabilization before orthopedic intervention was performed by Dr. Sapp on 09/04/16 with a gamma nail placement. The patient tolerated the procedure quite well. Postoperatively, he did have somewhat of a course of lowering blood pressure as his blood count eventually slowly equilibrated at a very low level. He and his did not wish to have blood transfusions if at all possible and since he was tolerating his ongoing rehabilitation with a hemodynamically stable situation, he will be continued to be observed with a repeat CBC in 2 to 3 days. The patient was still too weak to fully and safely return back home so a decision to place on Swing Bed rehabilitation was made. PAST MEDICAL HISTORY: 1. Benign prostatic hypertrophy. 2. Seasonal allergies. 3. Gastroesophageal reflux disease. 4. Hyperlipidemia. 5. Hypertension. 6. Osteoarthritis. 7. A fall with a fractured hip. PAST SURGICAL HISTORY: 1. Tonsillectomy and adenoidectomy as a child. 2. Colonoscopy. 3. Gamma nail repair of a right intertrochanteric femoral fracture about 5 days ago. ALLERGIES: CIPRO FAMILY HISTORY: Unremarkable. SOCIAL HISTORY: He is retired, , has 3 children. He quit smoking 20 years ago. REVIEW OF SYSTEMS: Unremarkable except as it relates to his recent fall and bony injury and surgical repair. PHYSICAL EXAMINATION: VITAL SIGNS: Afebrile. Pulse 97, blood pressure 128/70, pulse oximetry 94% on room air. Weight is 88 kilos. GENERAL: The patient is more alert today and is ready to continue with ongoing rehabilitation until strong enough to return home. LUNGS: Diminished breath sounds, still with pain especially on the right posterolateral chest wall from a possible small crack in a rib from a significant cough spell noted yesterday. HEART: Tones somewhat distant yet regular. ABDOMEN: Slightly distended with no bowel movements successfully noted since surgery and efforts to assist him in that maneuver are still underway. EXTREMITIES: The incision is healing well over the right lateral hip, extensive ecchymoses noted in the right groin down to the scrotum and the perineal area as further proof of the fairly significant blood loss noted at the time of the fall and hip fracture. LABORATORY STUDIES: Hemoglobin has dropped from 15.5 before surgery down to 9.0. White count is normal at 7,400 down from 14,800. INR is normal at 1.14. Chemistries show potassium 3.8, BUN 18, creatinine 0.53, glucose 95. Osmolality has come up a little bit to 259 while the sodium was down to 125, is now up to 128. Blood cultures were negative and urine culture did show an E. coli with a pancytopenia treated with Rocephin for a parenteral treatment course. RADIOLOGY: Chest x-ray shows generally clear lungs, yet mild cardiomegaly with no pulmonary vascular congestion evident. X-ray shows satisfactory stabilization with a gamma nail after intertrochanteric comminuted fracture of the right femur was evident after the fall. HOSPITAL COURSE: The patient's condition slowly improved, though he still remained very weak and will require further rehabilitation until he is safe to return home. PLAN: The patient is discharged from medical/surgical floor and admitted to Swing Bed status. Further rehabilitation will be continued under the supervision of orthopedic surgery and physical therapy. Will recheck blood count in about 2 days or sooner if any evidence of progressive weakening is evident. At this time, his coloration is not bad and he is much more alert today and cooperative compared to yesterday. Continued rehabilitation to continue. #[id number] [facility]
== END 2016-09-09 15:53 | disposition swing bed (61) | DRG 481 ==
LOC: ER 07:56 → MS 09:51
PROVIDERS: ADMIT Orthopaedic Surgery; ATTEND Nurse Practitioner Acute Care
PROC: 0QH636Z Insertion of Intramedullary Internal Fixation Device into Right Upper Femur, Percutaneous Approach (ICD-10-PCS; principal; 2016-09-03)
DX: S72.141A Displaced intertrochanteric fracture of right femur, initial encounter for closed fracture (principal); E87.1 Hypo-osmolality and hyponatremia; N39.0 Urinary tract infection, site not specified; D62 Acute posthemorrhagic anemia; S22.31XA Fracture of one rib, right side, initial encounter for closed fracture; W18.30XA Fall on same level, unspecified, initial encounter; X58.XXXA Exposure to other specified factors, initial encounter; I10 Essential (primary) hypertension; K21.9 Gastro-esophageal reflux disease without esophagitis; N40.0 Benign prostatic hyperplasia without lower urinary tract symptoms; E78.5 Hyperlipidemia, unspecified; M19.90 Unspecified osteoarthritis, unspecified site; B96.20 Unspecified Escherichia coli [E. coli] as the cause of diseases classified elsewhere; Y93.9 Activity, unspecified; Y92.009 Unspecified place in unspecified non-institutional (private) residence as the place of occurrence of the external cause; Y99.9 Unspecified external cause status; Z79.82 Long term (current) use of aspirin; Z79.899 Other long term (current) drug therapy; Z87.891 Personal history of nicotine dependence; Z86.73 Personal history of transient ischemic attack (TIA), and cerebral infarction without residual deficits; Y93.89 Activity, other specified; Y92.230 Patient room in hospital as the place of occurrence of the external cause; Y99.8 Other external cause status

== ENCOUNTER 2016-09-09 16:01 | Inpatient (IN) | payer MEDICARE ==
[2016-09-09] MEDS ORDERED: ACETAMINOPHEN 500 MG TAB PO PRN (17:01)
[2016-09-09] MEDS ORDERED: SODIUM PHOS/BIPHOS ENEMA ADULT 133 ML BTTL PR PRN (17:01)
[2016-09-09] MEDS ORDERED: MAGNESIUM HYDROXIDE 30 ML UD PO PRN (17:01)
[2016-09-09] MEDS ORDERED: BISACODYL TAB 5 MG TAB PO PRN (17:07)
[2016-09-09] MEDS: METOPROLOL TARTRATE 50 MG TAB PO SCH (17:51)
--- NOTE | 2016-09-09 17:56 | HP ---
DISCHARGE SUMMARY FROM ACUTE CARE/HISTORY AND PHYSICAL FOR SWING BED DISCHARGE DIAGNOSES: 1. Acute intertrochanteric fracture of the right femur requiring surgical intervention by by Dr. Sapp with repair using a gamma nail, current postoperative day #5. 2. Chronic hyponatremia with a baseline sodium of 128 currently stable, yet continued treatment with p.o. fluid restrictions, gentle loop diuresis and salt in the diet, possibly related to a chronic elevated antidiuretic hormone. 3. Urinary tract infection with E. coli on culture treated for a complete course with Ceftriaxone now to be observed. 4. Leukocytosis, improved. 5. Postoperative anemia noted to be somewhat progressive, yet the patient is hemodynamically stable with anemia secondary to blood loss at the fracture site as evaluation continues. 6. History of benign prostatic hypertrophy. 7. History of gastroesophageal reflux disease. 8. History of hypertension. 9. History of hyperlipidemia. 10. History of a possible acute right lateral rib fracture from a significant cough onset yesterday. HISTORY OF PRESENT ILLNESS: This 81 year-old white male was apparently admitted to the hospital on 09/03/16 after falling at home landing on his right hip and suffering an acute intertrochanteric fracture. It was comminuted and required some stabilization before orthopedic intervention was performed by Dr. Sapp on 09/04/16 with a gamma nail placement. The patient tolerated the procedure quite well. Postoperatively, he did have somewhat of a course of lowering blood pressure as his blood count eventually slowly equilibrated at a very low level. He and his did not wish to have blood transfusions if at all possible and since he was tolerating his ongoing rehabilitation with a hemodynamically stable situation, he will be continued to be observed with a repeat CBC in 2 to 3 days. The patient was still too weak to fully and safely return back home so a decision to place on Swing Bed rehabilitation was made. PAST MEDICAL HISTORY: 1. Benign prostatic hypertrophy. 2. Seasonal allergies. 3. Gastroesophageal reflux disease. 4. Hyperlipidemia. 5. Hypertension. 6. Osteoarthritis. 7. A fall with a fractured hip. PAST SURGICAL HISTORY: 1. Tonsillectomy and adenoidectomy as a child. 2. Colonoscopy. 3. Gamma nail repair of a right intertrochanteric femoral fracture about 5 days ago. ALLERGIES: CIPRO FAMILY HISTORY: Unremarkable. SOCIAL HISTORY: He is retired, , has 3 children. He quit smoking 20 years ago. REVIEW OF SYSTEMS: Unremarkable except as it relates to his recent fall and bony injury and surgical repair. PHYSICAL EXAMINATION: VITAL SIGNS: Afebrile. Pulse 97, blood pressure 128/70, pulse oximetry 94% on room air. Weight is 88 kilos. GENERAL: The patient is more alert today and is ready to continue with ongoing rehabilitation until strong enough to return home. LUNGS: Diminished breath sounds, still with pain especially on the right posterolateral chest wall from a possible small crack in a rib from a significant cough spell noted yesterday. HEART: Tones somewhat distant yet regular. ABDOMEN: Slightly distended with no bowel movements successfully noted since surgery and efforts to assist him in that maneuver are still underway. EXTREMITIES: The incision is healing well over the right lateral hip, extensive ecchymoses noted in the right groin down to the scrotum and the perineal area as further proof of the fairly significant blood loss noted at the time of the fall and hip fracture. LABORATORY STUDIES: Hemoglobin has dropped from 15.5 before surgery down to 9.0. White count is normal at 7,400 down from 14,800. INR is normal at 1.14. Chemistries show potassium 3.8, BUN 18, creatinine 0.53, glucose 95. Osmolality has come up a little bit to 259 while the sodium was down to 125, is now up to 128. Blood cultures were negative and urine culture did show an E. coli with a pancytopenia treated with Rocephin for a parenteral treatment course. RADIOLOGY: Chest x-ray shows generally clear lungs, yet mild cardiomegaly with no pulmonary vascular congestion evident. X-ray shows satisfactory stabilization with a gamma nail after intertrochanteric comminuted fracture of the right femur was evident after the fall. HOSPITAL COURSE: The patient's condition slowly improved, though he still remained very weak and will require further rehabilitation until he is safe to return home. PLAN: The patient is discharged from medical/surgical floor and admitted to Swing Bed status. Further rehabilitation will be continued under the supervision of orthopedic surgery and physical therapy. Will recheck blood count in about 2 days or sooner if any evidence of progressive weakening is evident. At this time, his coloration is not bad and he is much more alert today and cooperative compared to yesterday. Continued rehabilitation to continue. #[id number] [facility]
[2016-09-09] MEDS ORDERED: LISINOPRIL 10 MG TAB ONE (19:27)
[2016-09-09] MEDS: HYDROcodone 7.5MG/APAP 325MG 1 EA TAB PO PRN (19:31)
[2016-09-09] MEDS: TAMSULOSIN 0.4 MG CAP PO SCH (20:34)
[2016-09-09] MEDS ORDERED: NON-FORMULARY MEDICATION 1 EA MIS (Lisinopril [Lisinopril] 20 MG) PO SCH (21:00)
[2016-09-09] MEDS: TEMAZEPAM 15 MG CAP PO PRN (21:52)
[2016-09-10] MEDS: HYDROcodone 7.5MG/APAP 325MG 1 EA TAB PO PRN ×2 (03:50→09:11)
[2016-09-10] MEDS ORDERED: OMEPRAZOLE CAP 20 MG CAP ONE (07:44)
[2016-09-10] MEDS: METOPROLOL TARTRATE 50 MG TAB PO SCH ×2 (07:53→17:58)
[2016-09-10] MEDS: OMEPRAZOLE CAP 20 MG CAP PO SCH (09:04)
[2016-09-10] MEDS: DOCUSATE SODIUM 100 MG CAP PO SCH (09:04)
[2016-09-10] MEDS: RIVAROXABAN 10 MG TAB PO SCH (09:04)
--- NOTE | 2016-09-10 13:38 | PN ---
DATE: 09/10/16 SUBJECTIVE: The patient is sitting up in the chair and states that he in many ways feels better today. He has not receive any blood transfusions and his last hemoglobin was down to 9 and recheck tomorrow. His appetite seems to be better. His also states that in many ways he appears to be a little stronger and more alert and more able to cooperate with his ongoing rehabilitation. OBJECTIVE: VITAL SIGNS: Afebrile. Pulse 86. Blood pressure 138/78. Pulse oximetry 95% on room air. LUNGS: Clear. HEART: Regular. ABDOMEN: Soft. He did have a small bowel movement today for the first time for a few days. ASSESSMENT: 1. Day #6 postoperative Gamma nail repair of acute intertrochanteric fracture of the right femur related to a fall at home. 2. Chronic hyponatremia noted with repeat followup tomorrow and continued evaluation as needed in the outpatient department. 3. Urinary tract infection with Escherichia coli recently, having completed a course of ceftriaxone with observation to continue. 4. Leukocytosis, improved. 5. Postoperative anemia secondary to significant blood loss at the fracture site, though hemodynamically stable, showing clinical improvement with a recheck of the hemoglobin tomorrow. 6. History of benign prostatic hypertrophy. 7. History of gastroesophageal reflux disease. 8. History of hypertension. 9. History of hyperlipidemia. 10. History of a recent right lateral rib possible injury from a significant cough, showing some significant improvement in his pain and symptoms. PLAN: Continue observation. Recheck CBC tomorrow to evaluate the status of his blood loss anemia at the fracture site. Continue rehabilitation until able to safely return home. [id number] [facility]
[2016-09-10] MEDS: TAMSULOSIN 0.4 MG CAP PO SCH (20:26)
[2016-09-10] MEDS: LISINOPRIL 10 MG TAB PO SCH (20:26)
[2016-09-11] MEDS: HYDROcodone 7.5MG/APAP 325MG 1 EA TAB PO PRN ×4 (00:01→22:27)
--- NOTE | 2016-09-11 08:16 | PN ---
DATE: 09/10/16 SUBJECTIVE: Mr. Moser is improved considerably. OBJECTIVE: Afebrile. Vital signs stable. Wounds are clean. There are no signs or symptoms of infection. ASSESSMENT: Status post Gamma nail. PLAN: He will remain in Swing Bed status and continue with physical therapy during that time. #[id number] [facility]
[2016-09-11] MEDS: METOPROLOL TARTRATE 50 MG TAB PO SCH ×2 (08:19→17:30)
[2016-09-11] MEDS: DOCUSATE SODIUM 100 MG CAP PO SCH (09:13)
[2016-09-11] MEDS: RIVAROXABAN 10 MG TAB PO SCH (09:13)
[2016-09-11] MEDS: OMEPRAZOLE CAP 20 MG CAP PO SCH (09:13)
[2016-09-11] MEDS: LISINOPRIL 10 MG TAB PO SCH (20:46)
[2016-09-11] MEDS: TAMSULOSIN 0.4 MG CAP PO SCH (20:46)
--- NOTE | 2016-09-11 21:33 | PN ---
DATE: 09/11/16 SUBJECTIVE: The patient is lying in the bed and in many ways appears more alert and responsive, moving all extremities. He is still complaining of pain in his hip but admits that he is feeling much better now compared to 2 days ago. His hemoglobin had dropped down to 9 and it is encouraging to know that now spontaneously with self absorption and without the use of red blood cell transfusions, his hemoglobin is now up to 10.2. OBJECTIVE: Vitals are stable and exam unchanged. ASSESSMENT: 1. Postoperative day number 7 gamma nail repair of an acute intertrochanteric fracture of the right femur related to a fall at home. 2. Chronic hyponatremia fairly stable at the present time. 3. History of recent urinary tract infection with Escherichia coli having completed a course of therapy with Ceftriaxone with observation to continue. 4. History of leukocytosis, improved. 5. Postoperative anemia showing some improvement with absorption and primary red cell production. 6. History of benign prostatic hypertrophy. 7. History of gastroesophageal reflux disease. 8. History of hypertension. 9. History of hyperlipidemia. 10. History of recent right lateral rib discomfort, possible fracture injury showing significant improvement over the last 2 days. PLAN: Continue rehabilitation and reevaluation. The patient will be able to continue rehabilitation until able to safely return home. #[id number] [facility]
[2016-09-12] MEDS: HYDROcodone 7.5MG/APAP 325MG 1 EA TAB PO PRN (07:17)
[2016-09-12] MEDS: OMEPRAZOLE CAP 20 MG CAP PO SCH (08:26)
[2016-09-12] MEDS: DOCUSATE SODIUM 100 MG CAP PO SCH (08:26)
[2016-09-12] MEDS: RIVAROXABAN 10 MG TAB PO SCH (08:26)
[2016-09-12] MEDS: METOPROLOL TARTRATE 50 MG TAB PO SCH ×2 (08:31→17:00)
--- NOTE | 2016-09-12 20:56 | PCM.CORE ---
Physician DVT/VTE - Prophylaxis Currently: Patient already on anticoagulation therapy - xarelto - Nurse DVT Assessment & Total Each Risk Factor Represents 3 Points: Age over 75 years Each Risk Factor Represents 1 Point: Medical PT at Bed Rest Each Risk Factor is 1 Point: Varicose Veins/Edema Legs DVT Assessment Score: 5 - 5 or more Very High Risk Treatments: Early Ambulation *, Sequential Compression Device
[2016-09-12] MEDS: TAMSULOSIN 0.4 MG CAP PO SCH (22:06)
[2016-09-12] MEDS: TEMAZEPAM 15 MG CAP PO PRN (22:06)
[2016-09-12] MEDS: LISINOPRIL 10 MG TAB PO SCH (22:06)
[2016-09-13] MEDS: HYDROcodone 7.5MG/APAP 325MG 1 EA TAB PO PRN ×3 (02:46→19:24)
[2016-09-13] MEDS: METOPROLOL TARTRATE 50 MG TAB PO SCH ×2 (08:56→18:00)
[2016-09-13] MEDS: DOCUSATE SODIUM 100 MG CAP PO SCH (08:56)
[2016-09-13] MEDS: RIVAROXABAN 10 MG TAB PO SCH (08:56)
[2016-09-13] MEDS: OMEPRAZOLE CAP 20 MG CAP PO SCH (08:56)
[2016-09-13] MEDS: TAMSULOSIN 0.4 MG CAP PO SCH (20:28)
[2016-09-13] MEDS: LISINOPRIL 10 MG TAB PO SCH (21:10)
[2016-09-14] MEDS: HYDROcodone 7.5MG/APAP 325MG 1 EA TAB PO PRN ×4 (00:31→18:36)
[2016-09-14] MEDS: OMEPRAZOLE CAP 20 MG CAP PO SCH (09:23)
[2016-09-14] MEDS: METOPROLOL TARTRATE 50 MG TAB PO SCH ×2 (09:24→17:43)
[2016-09-14] MEDS: DOCUSATE SODIUM 100 MG CAP PO SCH (09:24)
[2016-09-14] MEDS: RIVAROXABAN 10 MG TAB PO SCH (09:24)
[2016-09-14] MEDS: TAMSULOSIN 0.4 MG CAP PO SCH (21:18)
[2016-09-14] MEDS: LISINOPRIL 10 MG TAB PO SCH (21:18)
[2016-09-15] MEDS: HYDROcodone 7.5MG/APAP 325MG 1 EA TAB PO PRN ×4 (00:10→19:46)
[2016-09-15] MEDS: METOPROLOL TARTRATE 50 MG TAB PO SCH ×2 (08:30→17:44)
[2016-09-15] MEDS: DOCUSATE SODIUM 100 MG CAP PO SCH (10:14)
[2016-09-15] MEDS: OMEPRAZOLE CAP 20 MG CAP PO SCH (10:14)
[2016-09-15] MEDS: RIVAROXABAN 10 MG TAB PO SCH (10:14)
--- NOTE | 2016-09-15 10:57 | PN ---
DATE: 09-14-16 SUPERVISING PHYSICIAN: Joey Turner MD SUBJECTIVE: The patient is doing well. He has been participating with physical therapy, has good pain control. He did have a little dysuria yesterday. Urinalysis was completed and showed to be within normal limits on microscopic but a trace of leukoesterase on the dipstick. He notes that his symptoms have resolved since the previous urine was collected. He remains afebrile. He has had no nausea, vomiting, diarrhea. OBJECTIVE: VITAL SIGNS: Temperature 98.2, pulse 80, blood pressure 142/76, respirations 17 , saturation 96% on room air. CHEST clear to auscultation bilaterally. HEART regular rate and rhythm. ABDOMEN soft, non-tender, positive bowel sounds. EXTREMITIES: No cyanosis, clubbing, or edema. Right hip incision sites are clean and dry with no signs of infection. NEUROLOGIC: He is alert and oriented x 3. Additional laboratory studies completed include a urine yesterday which showed just race leukoesterase, otherwise was negative. RADIOLOGY: No radiographic studies have been submitted since admission. ASSESSMENT: 1. Postoperative day #10 of gamma nail repair of an acute intertrochanteric fracture of the right femur related to a fall at home. 2. Chronic hyponatremia showing to be stable at time of admission to Swing bed. 3. History of recent urinary tract infection with Escherichia coli having completed a course of therapy with Ceftriaxone with repeat urinalysis shown to be within normal limits. 4. History of leukocytosis, improved. 5. Postoperative anemia showing improvement with absorption and primary red cell production. 6. History of benign prostatic hypertrophy. 7. History of gastroesophageal reflux disease. 8. History of hypertension. 9. History of hyperlipidemia. 10. History of recent right lateral rib discomfort, possible fracture injury showing significant improvement over the Swing bed admission. PLAN: Will continue with rhabdomyolysis monitoring closely and await discharge based off meeting his physical therapy goals. Until the, we will continue to follow closely and treat appropriately. #[id number] [facility]
[2016-09-15] MEDS: TEMAZEPAM 15 MG CAP PO PRN (21:01)
[2016-09-15] MEDS: LISINOPRIL 10 MG TAB PO SCH (21:01)
[2016-09-15] MEDS: TAMSULOSIN 0.4 MG CAP PO SCH (21:01)
[2016-09-16] MEDS: HYDROcodone 7.5MG/APAP 325MG 1 EA TAB PO PRN ×3 (06:10→20:00)
[2016-09-16] MEDS: METOPROLOL TARTRATE 50 MG TAB PO SCH ×2 (07:47→17:47)
[2016-09-16] MEDS: OMEPRAZOLE CAP 20 MG CAP PO SCH (09:39)
[2016-09-16] MEDS: DOCUSATE SODIUM 100 MG CAP PO SCH (09:39)
[2016-09-16] MEDS: RIVAROXABAN 10 MG TAB PO SCH (09:39)
[2016-09-16] MEDS: LISINOPRIL 10 MG TAB PO SCH (20:43)
[2016-09-16] MEDS: TAMSULOSIN 0.4 MG CAP PO SCH (20:44)
[2016-09-17] MEDS: HYDROcodone 7.5MG/APAP 325MG 1 EA TAB PO PRN ×3 (08:34→21:04)
[2016-09-17] MEDS: OMEPRAZOLE CAP 20 MG CAP PO SCH (08:35)
[2016-09-17] MEDS: DOCUSATE SODIUM 100 MG CAP PO SCH (08:35)
[2016-09-17] MEDS: RIVAROXABAN 10 MG TAB PO SCH (08:37)
[2016-09-17] MEDS: METOPROLOL TARTRATE 50 MG TAB PO SCH ×2 (08:39→16:34)
[2016-09-17] MEDS: TAMSULOSIN 0.4 MG CAP PO SCH (21:04)
[2016-09-17] MEDS: LISINOPRIL 10 MG TAB PO SCH (21:04)
[2016-09-18] MEDS: HYDROcodone 7.5MG/APAP 325MG 1 EA TAB PO PRN ×3 (05:54→20:32)
[2016-09-18] MEDS: METOPROLOL TARTRATE 50 MG TAB PO SCH ×2 (08:49→17:07)
[2016-09-18] MEDS: RIVAROXABAN 10 MG TAB PO SCH (08:49)
[2016-09-18] MEDS: OMEPRAZOLE CAP 20 MG CAP PO SCH (08:49)
[2016-09-18] MEDS: DOCUSATE SODIUM 100 MG CAP PO SCH (08:49)
[2016-09-18] MEDS: TAMSULOSIN 0.4 MG CAP PO SCH (20:32)
[2016-09-18] MEDS: LISINOPRIL 10 MG TAB PO SCH (20:32)
[2016-09-19] MEDS: HYDROcodone 7.5MG/APAP 325MG 1 EA TAB PO PRN (05:33)
[2016-09-19] MEDS: METOPROLOL TARTRATE 50 MG TAB PO SCH (08:00)
[2016-09-19] MEDS: DOCUSATE SODIUM 100 MG CAP PO SCH (09:10)
[2016-09-19] MEDS: RIVAROXABAN 10 MG TAB PO SCH (09:10)
[2016-09-19] MEDS: OMEPRAZOLE CAP 20 MG CAP PO SCH (09:12)
[2016-09-19 11:40] VITALS: BP 137/71; TEMP 97.4; O2SAT 96
--- NOTE | 2016-09-19 14:41 | DS ---
SUPERVISING PHYSICIAN: Joey Turner MD DISCHARGE DIAGNOSIS: 1. Acute intertrochanteric fracture of the right femur requiring surgical intervention by Dr. Sapp with repair using a Gamma nail, currently postoperative day # 15. 2. Chronic hyponatremia with a baseline sodium of 128, currently stable. 3. Urinary tract infection with Escherichia coli on culture, treated with ceftriaxone. 4. Leukocytosis, improved. 5. Postoperative anemia, most likely noted to be blood loss. The patient is now presently hemodynamically stable. 6. History of benign prostatic hypertrophy. 7. Gastroesophageal reflux disease. 8. History of hypertension. 9. Hyperlipidemia. 10. Question acute right lateral rib fracture while in the hospital due to significant cough. HISTORY OF PRESENT ILLNESS: This is a 81-year-old, white male patient who was admitted to the hospital on 09/03/16 after falling at home. He landed on his right hip and suffered an acute intertrochanteric fracture. It was comminuted and required some stabilization before Dr. Sapp performed Gamma nail placement on 09/04/16. The patient tolerated the procedure quite well. He did postoperatively have some problems with some hypotension. That stabilized quite nicely. He does have chronic hyponatremia and was treated until his sodium levels came back to his baseline, which are usually about 128. He was actually discharged from the Acute Care setting and readmitted to Swing Bed on 09/09/16 for strengthening and conditioning. He has improved daily with his strengthening and conditioning on Swing Bed and at this point, he can be discharged home with continued home health and physical therapy. DISCHARGE PLAN: The patient will be discharged home in stable condition. He will be followed by [facility] with both nursing and physical therapy. He will be discharged on some pain medications of hydrocodone as well as his Xarelto. He has a followup appointment with Dr. Willis on October 02 at 9:15 in the morning. He has a followup appointment with Dr. Sapp in about three weeks. He is to return to the hospital or call Dr. Willis' office or Dr. Spap's office for any further complications or problems. He is to resume his previous diet as well as his previous medications with the addition of the Xarelto and hydrocodone. Dr. Turner is the collaborating physician and available for consultation. #[id number] [facility]
== END 2016-09-19 13:25 | disposition home health service (06) | DRG 560 ==
LOC: MS 16:01
PROVIDERS: ADMIT Emergency Medicine; ATTEND Nurse Practitioner Acute Care
DX: S72.141D Displaced intertrochanteric fracture of right femur, subsequent encounter for closed fracture with routine healing (principal); E87.1 Hypo-osmolality and hyponatremia; D50.0 Iron deficiency anemia secondary to blood loss (chronic); N40.0 Benign prostatic hyperplasia without lower urinary tract symptoms; K21.9 Gastro-esophageal reflux disease without esophagitis; I10 Essential (primary) hypertension; E78.5 Hyperlipidemia, unspecified; S22.31XD Fracture of one rib, right side, subsequent encounter for fracture with routine healing; R53.1 Weakness; J30.2 Other seasonal allergic rhinitis; M19.90 Unspecified osteoarthritis, unspecified site; Z88.1 Allergy status to other antibiotic agents; Z87.891 Personal history of nicotine dependence; Z87.440 Personal history of urinary (tract) infections

== ENCOUNTER → 2016-10-07 | Outpatient (CLI) | payer MEDICARE ==
--- NOTE | 2016-10-07 09:26 | RAD ---
EXAM DESCRIPTION: Hip,Right 2 Views CLINICAL HISTORY: HIP PAIN COMPARISON: September 04, 2016 TECHNIQUE: AP/frog leg lateral FINDINGS: Internal fixation of the right hip with a short intramedullary tod and interlocking femoral screw and anchoring screw distally is noted. Fracture lines are less distinct than previously seen but incomplete bony union is not apparent with a separate lesser trochanteric fragment that is unchanged in position. Satisfactory alignment and placement of the orthopedic hardware is noted. The pubic initial ramus and acetabulum appear intact. IMPRESSION: Internal fixation of the right hip with incomplete healing of right hip fracture with satisfactory alignment Electronically signed by: Joey Chapin MD 10/07/2016 9:25 AM CDT
== END | disposition home or self-care (01) ==
LOC: RAD 08:21
PROVIDERS: ATTEND Orthopaedic Surgery
DX: S72.121D Displaced fracture of lesser trochanter of right femur, subsequent encounter for closed fracture with routine healing (principal)

== ENCOUNTER → 2016-11-06 | Outpatient (CLI) | payer MEDICARE ==
--- NOTE | 2016-11-07 14:28 | RAD ---
EXAM DESCRIPTION: Hip,Right 2 Views CLINICAL HISTORY: FX OF FEMUR COMPARISON: October 07, 2016 TECHNIQUE: AP/frog leg lateral FINDINGS: The right hip is internally fixed with a interlocking short intramedullary tod and compression screw. Stable alignment is noted with progressive healing and callus formation at the separate lesser trochanteric fragment. The joint spaces well-maintained a. IMPRESSION: Rest of healing of the internally fixed right hip fracture with increasing callus formation with incomplete bony union at this time. Electronically signed by: Joey Chapin MD 11/07/2016 2:27 PM CDT
== END | disposition home or self-care (01) ==
LOC: RAD 15:19
PROVIDERS: ATTEND Orthopaedic Surgery
DX: S72.001S Fracture of unspecified part of neck of right femur, sequela (principal)

== ENCOUNTER → 2016-12-06 | Outpatient (CLI) | payer MEDICARE ==
--- NOTE | 2016-12-09 09:30 | RAD ---
EXAM DESCRIPTION: Hip,Right 2 Views CLINICAL HISTORY: CLOSED FEMUR FX. COMPARISON: November 06, 2016 TECHNIQUE: AP/frog leg lateral FINDINGS: Prior internal fixation of the right hip with a short intramedullary tod and interlocking compression screw is stable in appearance with some maturation of callus formation in the region of the lesser trochanter. Significant settling or malalignment or new fracture is not apparent. IMPRESSION: Partial healing of the internally fixed right hip fracture in stable alignment. Electronically signed by: Joey Chapin MD 12/09/2016 9:29 AM CDT
== END | disposition home or self-care (01) ==
LOC: RAD 15:00
PROVIDERS: ATTEND Orthopaedic Surgery
DX: S72.001D Fracture of unspecified part of neck of right femur, subsequent encounter for closed fracture with routine healing (principal)

== ENCOUNTER → 2017-01-17 | Outpatient (CLI) | payer MEDICARE ==
--- NOTE | 2017-01-18 15:54 | RAD ---
EXAM DESCRIPTION: Hip,Right 2 Views CLINICAL HISTORY: 81 years Male, INTERTROCHANTERIC FX COMPARISON: December 06, 2016 TECHNIQUE: AP and frog-leg views FINDINGS: I am tod with hip nail again seen. Displaced lesser trochanter fragment as noted on prior examination. There has been no significant change. No acute fractures are developed. Femoral head remains seated within the acetabular cup. IMPRESSION: No significant change compared with previous examination Electronically signed by: Christopher Olivarez 01/18/2017 3:53 PM CDT
== END | disposition home or self-care (01) ==
LOC: RAD 14:22
PROVIDERS: ATTEND Orthopaedic Surgery
DX: S72.141D Displaced intertrochanteric fracture of right femur, subsequent encounter for closed fracture with routine healing (principal); X58.XXXA Exposure to other specified factors, initial encounter

== ENCOUNTER → 2017-02-14 | Outpatient (CLI) | payer MEDICARE ==
--- NOTE | 2017-02-16 12:34 | RAD ---
EXAM DESCRIPTION: Hip, right 2 Views CLINICAL HISTORY: 81 years Male, INTERTOCHANTERIC FX COMPARISON: January 17, 2017. FINDINGS: Posttraumatic and postoperative changes are again noted, including internal fixation hardware in the proximal right femur. No significant interval change is seen compared to the last study. The hip joint space is maintained. There is slight hypertrophic bony change at the right lateral acetabular roof. IMPRESSION: Stable postoperative appearance of the right hip. Electronically signed by: Riccardo Cloud 02/16/2017 12:33 PM [facility] [[email or web address]]
== END | disposition home or self-care (01) ==
LOC: RAD 10:29
PROVIDERS: ATTEND Orthopaedic Surgery
DX: S72.141D Displaced intertrochanteric fracture of right femur, subsequent encounter for closed fracture with routine healing (principal); X58.XXXA Exposure to other specified factors, initial encounter

== ENCOUNTER → 2017-06-23 | Outpatient (CLI) | payer MEDICARE ==
--- NOTE | 2017-06-23 17:18 | US ---
EXAM DESCRIPTION: Abdomen,Limited CLINICAL HISTORY: 81 years Male, PANNICULITIS AFFECTING REGIONS OF NECK AND BACK COMPARISON: None. TECHNIQUE: Retroperitoneal sonogram was performed to evaluate the aorta and kidneys. FINDINGS: Right kidney Right renal length is 13.6 cm which is large. This can be seen in patients of large body habitus or, most commonly, with diabetes. Renal cortical thickness and echogenicity are normal. Lucent area in the central right kidney is measured as 1.2 cm which could be prominent sonolucent pyramids (hypertrophied column of 13) or small parapelvic cyst. Otherwise no right renal mass, cyst or shadowing stone. Left kidney Left renal length is 11.8 cm which is normal. Renal cortical thickness and echogenicity are normal. No left renal mass, cyst or shadowing stone. Aorta The aorta measures 2.6 by 2.7 cm in diameter proximally decreasing to 2.2 x 2.5 cm more distally. Right common iliac arteries are prominent measuring 1.3 cm in diameter on the right and 1.3 cm is in diameter on the left. Normal color flow within the aorta. IMPRESSION: Large right kidney with normal size of the left kidney. Negative for hydronephrosis. Negative for aortic aneurysm. Electronically signed by: Paulino Zuleta MD 06/23/2017 5:15 PM CDT
== END ==
LOC: US 09:30
PROVIDERS: ATTEND Family Medicine
DX: M54.08 Panniculitis affecting regions of neck and back, sacral and sacrococcygeal region (principal)

== ENCOUNTER → 2017-07-03 | Outpatient (CLI) | payer MEDICARE | END | disposition home or self-care (01) | LOC: GMAJ 10:48 | PROVIDERS: ATTEND Family Medicine | DX: N40.0 Benign prostatic hyperplasia without lower urinary tract symptoms (principal) ==

== ENCOUNTER → 2017-07-25 | Outpatient (CLI) | payer MEDICARE ==
--- NOTE | 2017-07-27 20:41 | MRI ---
EXAM DESCRIPTION: Thoracic Spine w/o Contrast: Magnetic Resonance Imaging. CLINICAL HISTORY: SPINAL STENOSIS COMPARISON: Thoracic spine radiographs 06/19/2017. TECHNIQUE: Multiplanar, multiple standard sequences, non contrast MRI, thoracic spine. FINDINGS: Dextroscoliosis T5-T9. No scoliosis T10-L1, and T1-T4. Intimal loss of height of the anterior T8 vertebral body. Diffuse marrow edema in the anterior two thirds of the vertebral body. Not involving the pedicles. No retropulsion. Loss of height of the mid and anterior T9 vertebral body with diffuse marrow edema involving the middle and anterior third of the vertebral body but not the posterior body or the pedicles. There is solitary transverse line through the vertebral body just above the inferior endplate. No retropulsion. Marrow edema in the central T11 vertebral body with approximately 50% compression and concavities of the superior and inferior endplate. No marrow edema of the pedicles and no retropulsion T4-T5 disc desiccation and disc space maintained. Anterior ankylosis. No posterior bulging. Bilateral foramina are patent. Minimal bilateral facet arthrosis. T5-T6 disc desiccation and anterior disc space loss and endplate ridging with anterior Modic type II endplate reactive changes. Minimal concavity of the inferior T5 endplate. No posterior disc bulging. Canal is patent with minimal foraminal narrowing and facet arthrosis. T6-7 disc desiccation and significant disc space loss. Anterior ankylosis. Posterior disc bulge abutting the cord with moderate canal narrowing. Bilateral foramina are patent. Minimal arthrosis left facet. T7-8 disc desiccation and minimal disc space loss. No significant bulging. Minimal canal narrowing. Bilateral foramina are patent. Minimal left facet arthrosis. T8-9 disc desiccation and minimal disc space loss. Anterior endplate spurs. Minimal posterior bulge with osteophyte narrowing the canal no cord impingement. Bilateral moderate foraminal narrowing. T9-10: Anterior disc bulge with endplate ridging. Disc expanding into the concavities of the endplates. Moderate to severe bilateral foraminal narrowing. Minimal left facet arthrosis. T10-11: Anterior disc bulge and endplate spurs to the right of midline. Posterior disc space narrowing. Bilateral foraminal stenosis. Mild canal narrowing. Minimal left facet arthrosis. . T11-T12: Disc desiccation and minimal anterior bulging. Minimal disc bulge. Concavity Schmorl's node inferior T11. Mild narrowing right foramen and moderate narrowing left foramen. Minimal bilateral facet arthrosis. T12-L1: Minimal disc desiccation with no bulging. Canal and foramina are patent. Conus terminates at this level. Bilateral facets are unremarkable. Other discs demonstrate normal signal. Disc spaces are preserved. Canal and foramina are patent. No scoliosis. Facet joints are unremarkable Minimal soft tissue edema anterior to T8 and T9 vertebral bodies. Remaining paravertebral soft tissues are unremarkable. Normal marrow signal in the remaining vertebral bodies and the posterior elements. Normal signal in the cord with no compression. IMPRESSION: 1. Thoracic kyphoscoliosis. Disc desiccation at multiple levels. Facet arthrosis. Anterior ankylosis of some of the disc spaces. 2. Marrow edema and compression type vertebral body fractures T8-T9 and T11. There is also a transverse fracture of the inferior T9 vertebral body, not a Chance fracture. No retropulsion at any level and no marrow edema in the pedicles or posterior elements. 3. Moderate severe bilateral foraminal narrowing at T9-10. Correlate for bilateral T9 radiculopathy. 4. Bilateral foraminal stenosis at T10-11. Correlate for bilateral T10 radiculopathy. 5. No canal stenosis cord edema or cord compression at any level. Electronically signed by: Omega Monet MD 07/27/2017 8:39 PM CDT
== END ==
LOC: MRI 13:05
PROVIDERS: ATTEND Family Medicine
DX: M48.04 Spinal stenosis, thoracic region (principal); S22.009A Unspecified fracture of unspecified thoracic vertebra, initial encounter for closed fracture

== ENCOUNTER 2017-08-23 15:57 | Observation (INO) | payer MEDICARE ==
--- NOTE | 2017-08-23 16:27 | ED.PDOC ---
History of Present Illness - General Chief Complaint: Neuro Symptoms/Deficits Stated Complaint: AMS-confused Time Seen by Provider: 08/23/17 16:25 Source: family - Exam Limitations: no limitations - History of Present Illness Initial Comments: John Moser 82 y/o male brought by ems after he was noted acting inappropriately - was talking to him and not responding then called up daughter in law again talked to him and was just laughing also unable to follow commands. stated had 3 TIA in the past symptoms of numbness but no actual stroke.He was on Plavix daily but was stopped 5 days ago since he was scheduled for vertebroplasty due to compression fracture thoracic spine. also stated that he had fallen 2 x this week. Timing/Duration: 1-3 hours Severity: moderate Episode Description: see hpi Improving Factors: nothing Worsening Factors: nothing Associated Symptoms: confusion, other - see hpi Allergies/Adverse Reactions: Allergies Ciprofloxacin Allergy (Severe, Verified 09/07/16 15:24) Other Swelling of face Home Medications: Ambulatory Orders Aspirin [Aspirin EC Low Dose] 81 mg PO DAILY 01/06/16 Lisinopril 20 mg PO BEDTIME 01/06/16 Metoprolol Tartrate 50 mg PO BIDFD 01/06/16 Omeprazole 40 mg PO DAILY 01/06/16 Tamsulosin [Flomax] 0.4 mg PO BEDTIME 01/06/16 Clopidogrel Bisulfate [Plavix] 75 mg PO QD 09/03/16 Rosuvastatin Calcium [Crestor] 10 mg PO DAILY 09/03/16 HYDROcodone 7.5MG/APAP 325MG [[place] 7.5/325] 1 ea PO Q4H PRN 09/19/16 Rivaroxaban [Xarelto] 10 mg PO DAILY #19 capsule 09/19/16 Review of Systems - Review of Systems Neurological: States: see HPI Unable to Obtain Due To: condition, clinical condition - confusion Past Medical History (General) - Patient Medical History Hx Seizures: No Hx Stroke: No Hx Dementia: No Hx Asthma: No Hx of COPD: No Hx Cardiac Disorders: No Hx Congestive Heart Failure: No Hx Pacemaker: No Hx Hypertension: Yes Hx Thyroid Disease: No Hx Diabetes: No Hx Gastroesophageal Reflux: Yes Hx Renal Disease: No Hx Cancer: No Hx of HIV: No Hx Hepatitis C: No Hx MRSA: No Surgical History: other - right hip - Vaccination History Hx Tetanus, Diphtheria Vaccination: No Hx Influenza Vaccination: No Hx Pneumococcal Vaccination: No - Social History Hx Tobacco Use: Yes Hx Chewing Tobacco Use: Yes - Quit 1 yr. ago Hx Alcohol Use: No Hx Substance Use: No Hx Substance Use Treatment: No Hx Depression: No Hx Physical Abuse: No Hx Emotional Abuse: No Hx Suspected Abuse: No - Activities of Daily Living Patient Lives Alone: No Grooming Ability: Independent Eating (Feeding) Ability: Independent Toileting Ability: Independent Family Medical History - Family History Father Living Status: Cause of : stroke Hx Family Hypertension: Yes Hx Family Stroke: Yes - TIA Brother Name: Two Brothers Living Status: Hx Family Stroke: Yes - Both brothers of strokes, one brother also had Marfan Syndrome Hx Cardiac Disease: Yes - dad Hx Family;Other: Rheumatoid arthritis Physical Exam - Physical Exam General Appearance: Alert, No apparent distress, Well Developed, Other - calm Eye Exam: bilateral normal ENT Exam: normal ENT inspection Neck: non-tender, supple, normal inspection, trachea midline Respiratory: lungs clear, normal breath sounds Cardiovascular/Chest: normal peripheral pulses, regular rate, rhythm, no murmur Peripheral Pulses: radial,right: 2+, radial,left: 2+ Gastrointestinal/Abdominal: normal bowel sounds, non tender, soft, no organomegaly Back Exam: no CVA tenderness, no vertebral tenderness Extremities Exam: non-tender, normal range of motion, no evidence of injury Mental Status: alert, disoriented x 3 dean for student affairs Exam: normal hearing, normal speech, PERRL Coordination/Gait: normal finger to nose Motor/Sensory: no motor deficit, no sensory deficit, no pronator drift Skin Exam: normal color, warm/dry Progress - Progress Progress: 08/23/17 17:19 Vital Signs - 8 hr 08/23/17 17:05 Pulse Rate [ 82 left brachial] Respiratory 16 Rate Blood Pressure 157/99 [left brachial] O2 Sat by Pulse 97 Oximetry - Results/Orders Results/Orders: 08/23/17 16:29 IV Care:Saline Lock per Protoc QSHIFT 08/23/17 16:30 EKG STAT 08/23/17 17:22 TSH [THYROID STIMULATING HORMONE] Stat Laboratory Results - last 24 hr 08/23/17 08/23/17 08/23/17 16:26 16:29 16:30 WBC 7.6 RBC 4.35 L Hgb 14.8 Hct 43.0 MCV 98.8 H MCH 34.0 H MCHC 34.5 RDW 13.4 Plt Count 178 MPV 8.1 Absolute Neuts (auto) 5.20 Absolute Lymphs (auto) 1.50 Absolute Monos (auto) 0.80 Absolute Eos (auto) 0.10 Absolute Basos (auto) 0.10 Neutrophils % 67.9 Lymphocytes % 19.4 L Monocytes % 10.6 H Eosinophils % 1.4 Basophils % 0.7 PT 12.3 INR 1.060 PTT (SP) 27.8 Sodium 125 L Potassium 4.3 Chloride 92 L Carbon Dioxide 27 Anion Gap 10.3 L BUN 17 Creatinine 0.78 BUN/Creatinine Ratio 21.8 H Random Glucose 107 H Serum Osmolality 253.5 L* Lactic Acid Calcium 9.5 Magnesium 2.1 Total Bilirubin 0.9 Direct Bilirubin 0.1 Indirect Bilirubin 0.8 AST 24 ALT 17 Alkaline Phosphatase 72 Creatine Kinase 116 CK-MB (CK-2) 3.0 CK-MB (CK-2) % Not Reportable Troponin I < 0.02 B-Natriuretic Peptide 45.3 Serum Total Protein 7.2 Albumin 4.3 Urine Color Yellow Urine Appearance Clear Urine pH 6.5 Ur Specific [place] 1.015 Urine Protein Negative Urine Glucose (UA) Negative Urine Ketones Negative Urine Blood Trace-intact H Urine Nitrite Negative Urine Bilirubin Negative Urine Urobilinogen 0.2 Ur Leukocyte Esterase Negative Urine RBC 0-1 Urine WBC 0 Ur Epithelial Cells 0 Urine Bacteria 0 Urine Opiates Screen Urine Barbiturates Ur Phencyclidine Scrn U Amphetamin/Meth Scrn U Benzodiazepines Scrn U Cocaine Metab Screen U Cannabinoids Screen 08/23/17 08/23/17 16:30 16:53 WBC RBC Hgb Hct MCV MCH MCHC RDW Plt Count MPV Absolute Neuts (auto) Absolute Lymphs (auto) Absolute Monos (auto) Absolute Eos (auto) Absolute Basos (auto) Neutrophils % Lymphocytes % Monocytes % Eosinophils % Basophils % PT INR PTT (SP) Sodium Potassium Chloride Carbon Dioxide Anion Gap BUN Creatinine BUN/Creatinine Ratio Random Glucose Serum Osmolality Lactic Acid 0.8 Calcium Magnesium Total Bilirubin Direct Bilirubin Indirect Bilirubin AST ALT Alkaline Phosphatase Creatine Kinase CK-MB (CK-2) CK-MB (CK-2) % Troponin I B-Natriuretic Peptide Serum Total Protein Albumin Urine Color Urine Appearance Urine pH Ur Specific [place] Urine Protein Urine Glucose (UA) Urine Ketones Urine Blood Urine Nitrite Urine Bilirubin Urine Urobilinogen Ur Leukocyte Esterase Urine RBC Urine WBC Ur Epithelial Cells Urine Bacteria Urine Opiates Screen Negative Urine Barbiturates Negative Ur Phencyclidine Scrn Negative U Amphetamin/Meth Scrn Negative U Benzodiazepines Scrn Negative U Cocaine Metab Screen Negative U Cannabinoids Screen Negative - EKG/XRAY/CT EKG: Sinus Comments: HR-79,1o av block-pr interval 258 ms XRAY: chest - no evidence of cardiopumonary disease CT Ordered: Yes - head no acute intracranial abnormality Departure - Departure Clinical Impression: Altered awareness, transient, Hyponatremia with decreased serum osmolality Time of Disposition: 17:59 Disposition: Admit Patient Condition: Fair Departure Forms: Patient Portal Self Enrollment Referrals: Alna Willis MD [Primary Care Provider] - 1-2 Weeks Home Medications: Ambulatory Orders Aspirin [Aspirin EC Low Dose] 81 mg PO DAILY 01/06/16 Lisinopril 20 mg PO BEDTIME 01/06/16 Metoprolol Tartrate 50 mg PO BIDFD 01/06/16 Omeprazole 40 mg PO DAILY 01/06/16 Tamsulosin [Flomax] 0.4 mg PO BEDTIME 01/06/16 Clopidogrel Bisulfate [Plavix] 75 mg PO QD 09/03/16 Rosuvastatin Calcium [Crestor] 10 mg PO DAILY 09/03/16 HYDROcodone 7.5MG/APAP 325MG [[place] 7.5/325] 1 ea PO Q4H PRN 09/19/16 Rivaroxaban [Xarelto] 10 mg PO DAILY #19 capsule 09/19/16 Decision To Admit - Decistion To Admit Decision to Admit Reason: Admit from ER Decision to Admit Date: 08/23/17 - D/W Eduardo Billings-ANP/Hospitalist Decision to Admit Time: 17:56
[2017-08-23] MEDS ORDERED: SODIUM CHLORIDE 0.9% 500ML 500 ML IVS ONE (16:29)
--- NOTE | 2017-08-23 16:58 | CT ---
EXAM DESCRIPTION: Head CLINICAL HISTORY: Confusion COMPARISON: None Available TECHNIQUE: Contiguous axial CT images of the head were obtained. Coronal and sagittal reconstructions were created from the axial data. This exam was performed according to our departmental dose-optimization program, which includes automated exposure control, adjustment of the mA and/or kV according to patient size and/or use of iterative reconstruction technique. FINDINGS: Poorly defined foci of decreased attenuation do not exert significant mass effect on surrounding structures and are likely sequela of prior insult, most likely on the basis of small vessel disease. There is no evidence of acute mass, mass effect, midline shift or hemorrhage. The ventricles and extra-axial CSF spaces are unremarkable. The brain parenchyma appears otherwise normal for the patient's age. No acute abnormalities of the bones is seen. IMPRESSION: No acute intracranial abnormality. Electronically signed by: Omega Kay 08/23/2017 4:57 PM CDT
--- NOTE | 2017-08-23 17:09 | RAD ---
EXAM DESCRIPTION: Chest,1 View CLINICAL HISTORY: AMS COMPARISON: 09/03/2016 FINDINGS: Cardiac silhouette is within normal limits. There is no focal parenchymal or pleural disease. Visualized osseous structures are within normal limits. IMPRESSION: No evidence of acute cardiopulmonary disease. Electronically signed by: Omega Kay 08/23/2017 5:07 PM CDT
--- NOTE | 2017-08-23 18:16 | HP ---
SUPERVISING PHYSICIAN: Alan Willis M.D. CHIEF COMPLAINT: Confusion. HISTORY OF PRESENT ILLNESS: Mr. Moser is an 82 year-old male patient that was brought to the E. R. via EMS after his and daughter noted that he was acting inappropriately and not responding in his normal manner at home. The noted that last night the patient had fallen and this afternoon the patient seemed to be a little bit confused, and then later on when she was talking to him he would not respond. All he would do was smile and laugh, and was unable to produce any words. At that point, she called EMS and the patient was brought to the Emergency Room. Upon arrival to the E. R., the patient's symptoms had essentially resolved. He was able to verbalize and was showing some confusion as to his date which slowly improved as well. He does have a history of previous transient ischemic attacks, the last being in December 2015. At that time, he had an MRI/MRA that was essentially negative as well as carotid Doppler studies that just showed moderate stenosis 40 to 50% on the left side with mild stenosis to the right side. He has been on Plavix which was stopped 5 days ago in preparation for a surgery that he is going to have on Friday. He has multiple compression fractures in his thoracic spine for which they are going to do apparently a kyphoplasty at [facility]. On admission, it was noted that he was hypertensive with a blood pressure initially of 135/101 but was afebrile with a heart rate of 78. His blood pressure did decrease without any intervention down to 180/96 at which time the patient was without any symptoms. Laboratory studies showed he had a normal white count with a normal differential. He does have a history of chronic hyponatremia and a review of his records shows sodium running in the low 130s and currently his sodium on admission this time was 125 with serum osmolality of 253. Liver functions were normal as well as troponin less than 0.02 and TSH of 1.79. Urinalysis just showed a trace of intact blood and toxicology screen was negative for all substances tested. He then had a CT of the head and per radiology interpretation no acute intracranial abnormalities. Dr. Moore, [facility] physician, requested the patient be placed in Observation secondary to his acute confusional state with concerns for a possible transient ischemic attack and further monitoring and correction of the hyponatremia which could possibly be resulting in his acute confusional state. The patient now is going to be placed in Observation status for further treatment and evaluation. He was placed in Observation in stable condition. PAST MEDICAL HISTORY: 1. Previous transient ischemic attack in 2016. 2. Seasonal allergies. 3. Benign prostatic hypertrophy. 4. Gastroesophageal reflux disease 5. Hyperlipidemia. 6. Hypertension. 7. Osteoarthritis. 8. Multiple compression fractures to the thoracic spine awaiting kyphoplasty. PAST SURGICAL HISTORY: 1. Tonsillectomy and adenoidectomy as a child. CURRENT MEDICATIONS: Please refer to EMR for current updated chronic medications ALLERGIES: CIPROFLOXACIN. FAMILY HISTORY: Noncontributory. SOCIAL HISTORY: The patient is retired. He is . He has 3 children and lives in [place]. He quit smoking well over 20 years previously and quit chewing tobacco approximately 5 years ago. He denies any alcohol or illicit drug use. REVIEW OF SYSTEMS: CONSTITUTIONAL: The patient denies any fevers, chills, body aches or general malaise. HEENT: No nasal congestion, ear aches, sore throat. RESPIRATORY: No cough, wheezing, shortness of breath, exertional dyspnea. CARDIOVASCULAR: No reported chest pains, palpitations, syncopal episodes or extremity edema. GASTROINTESTINAL: Denies any nausea, vomiting, diarrhea, abdominal pains or constipation. GENITOURINARY: He does have some difficulty with his stream but denies any dysuria or hematuria or other urinary symptoms. He does have a history of benign prostatic hypertrophy for which he takes Flomax. NEUROLOGIC: As noted in history of present illness. Denies any syncopal episodes. Has had a fall but no focal weakness. No seizures. No ataxia. He does utilize a walker but is ambulatory. PHYSICAL EXAMINATION: VITAL SIGNS: Temperature on admission was 97.2, initial heart rate 78, blood pressure 135/101, satting 98% on room air with respirations 18. admission to the Medical/Surgical floor, the patient was showing a blood pressure of 181/92 with heart rate 77. Admission weight was 84.1 kg. GENERAL: On exam on the Medical/Surgical floor, the patient was alert, oriented to his location himself but could not recall the year and was in no obvious acute distress. HEENT: Tympanic membranes were clear bilaterally. Oropharynx was pink and moist without any lesions. NECK: Supple, non-tender with full range of motion. No jugular venous distention. CHEST: Lungs were clear to auscultation bilaterally without any rhonchi, wheezing or rales. CARDIOVASCULAR: Regular rate and rhythm without appreciable murmurs, gallops, or rubs. ABDOMEN: Soft, non-tender. Positive bowel sounds. EXTREMITIES: No clubbing, cyanosis or edema. He moves all extremities ad cassy. NEUROLOGIC: Cranial nerves II-XII are grossly intact. Facial features are symmetrical. Extraocular movements are within normal limits. There is no notable nystagmus. Pupils were equal and reactive bilaterally. Speech pattern was normal. No ataxia with normal [id number] and heel to tang. There was no motor deficits. No sensory deficits and no pronator drift noted. He is alert and orientated times three. LABORATORY: CBC showed normal white count 7,600 with hemoglobin 14.8, hematocrit 43.0. RBC indices did indicate a macrocytic/hyperchromic presentation. Platelet count was 178. Differential showed to be within normal limits. Coagulation studies showed a normal PT and PTT. Chemistries showed a low sodium at 125 with potassium 4.3, carbon dioxide was normal at 27, BUN 17, creatinine 0.78. Serum osmolality was 253, calcium normal at 9.5, magnesium normal at 2.1. Liver functions all within normal limits. Lactic acid was normal at 0.8. Troponin less than 0.02. BNP was normal at 45.3 with TSH of 1.79. Urinalysis just showed a tract of intact blood, otherwise within normal limits. Toxicology screen on urine was negative for all substances tested. EKG showing a sinus rhythm with a first degree AV block, incomplete bundle branch block unchanged from previous on review of one on December 2015. RADIOLOGY: He had a CT of the head initially in the Emergency Department and per radiology interpretation no acute intracranial abnormalities. He then had a chest x-ray single view chest showed no evidence of acute cardiopulmonary disease. ASSESSMENT: 1. Acute on chronic hyponatremia with current sodium of 125 with a review of past medical records showing the patient's normal sodium to be around 129 to 130 with a decreased osmolality. 2. Acute confusional state, questionable transient ischemic attack versus symptomatic hyponatremia. 3. Multiple old thoracic compression fractures awaiting kyphoplasty on August 26 with the patient having been off his Plavix since last Friday. 4. History of previous transient ischemic attacks in December 2012 with the patient being on Plavix. 5. Hypertension poorly controlled. 6. Benign prostatic hypertrophy. 7. Gastroesophageal reflux disease. 8. Hypertension. 9. Hyperlipidemia. PLAN: The patient is going to be placed in Observation status for further neurological monitoring as well as initiation of IV fluids in efforts to correct his hyponatremia and low osmolality. He will also be on a fluid restriction of less than 1800 mL per 24 hours. He will be on cardiac telemetry as well as have neurologic checks per protocol. I will start him on some normal saline at 80 an hour and repeat his labs in the morning to include a BMP. Will anticipate length of stay to be 1 to 2 days. In regards to DVT prophylaxis, will hold off on Lovenox tonight and reassess in the morning with further consultation with Dr. Willis, his primary care physician, in regards to anticipated surgery for kyphoplasty this coming Friday. He has been off his Plavix now since Friday. Will anticipate hopefully discharging tomorrow. Until then, will continue to monitor and treat the patient appropriately. He will certainly needs close followup once discharged to see Dr. Willis, his primary care provider. #[id number] [facility]
[2017-08-23] MEDS ORDERED: IV SET AND CAP CHANGE INJ INJ SCH (19:00)
[2017-08-23] MEDS ORDERED: SODIUM CHLORIDE 0.9% (FLUSH) 10 ML SYG IV PRN (19:02)
[2017-08-23] MEDS ORDERED: ACETAMINOPHEN 325 MG TAB PO PRN (19:02)
[2017-08-23] MEDS ORDERED: SODIUM CHLORIDE 0.9% 1000ML 1,000 ML IVS PRN (19:05)
[2017-08-23] MEDS ORDERED: LISINOPRIL 10 MG TAB ONE (20:10)
[2017-08-23] MEDS: TAMSULOSIN 0.4 MG CAP PO SCH (20:28)
--- NOTE | 2017-08-23 20:44 | PCM.CORE ---
Physician DVT/VTE - Nurse DVT Assessment & Total Each Risk Factor Represents 3 Points: Age over 75 years DVT Assessment Score: 3 - 3-4 High Risk Treatments: Early Ambulation *, Sequential Compression Device
[2017-08-23] MEDS ORDERED: NON-FORMULARY MEDICATION 1 EA MIS (Lisinopril [Lisinopril] 20 MG) PO SCH (21:00)
[2017-08-24] MEDS: METOPROLOL TARTRATE 50 MG TAB PO SCH ×2 (07:49→17:48)
[2017-08-24] MEDS: OMEPRAZOLE CAP 20 MG CAP PO SCH (08:33)
[2017-08-24] MEDS: ENOXAPARIN SODIUM 40 MG/0.4 ML SYG SUBCU SCH (11:28)
--- NOTE | 2017-08-24 12:35 | PN ---
SUPERVISING PHYSICIAN: Alan Willis MD DATE: 08/24/17 SUBJECTIVE: The patient is lying in his hospital bed. His family is at the bedside. He has no complaints of chest pain, nausea, vomiting, diarrhea or constipation. I discussed at length with the family about my discussion with his neurosurgeon, Dr. Castillo, who plans to do a kyphoplasty on Friday. Dr. Castillo has said that there should be no problem with going ahead with the surgery on Friday. OBJECTIVE: VITAL SIGNS: He is afebrile. Heart rate 72, blood pressure 153/79, respiratory rate 18, 02 saturation 94% on room air. LUNGS: Essentially clear to auscultation bilaterally. CARDIAC: Regular rate and rhythm. GI: ABDOMEN: Soft, nondistended, non-tender. Bowel sounds are positive. NEURO: He is awake, alert and oriented x2. He is unable to tell me the year. The family states that he is mostly at his baseline neurological status. LABORATORY: Sodium has improved to 128 with a potassium of 4.2, chloride 96, carbon dioxide 26, BUN 12, creatinine 0.61, calcium 8.7, serum osmolality 256.6. All other labs and films have been reviewed via the EMR. ASSESSMENT: 1. Acute on chronic hyponatremia with current sodium of 128. He was admitted with a sodium of 125. His normal sodium is 129 to 130. 2. Acute confusional state, questionable transient ischemic attack versus symptomatic hyponatremia. 3. Multiple old thoracic compression fractures awaiting kyphoplasty on August 26 with the patient having been off his Plavix since last Friday. 4. History of previous transient ischemic attacks in December 2012 with the patient being on Plavix. 5. Hypertension poorly controlled. 6. Benign prostatic hypertrophy. 7. Gastroesophageal reflux disease. 8. Hypertension. 9. Hyperlipidemia. PLAN: We will continue present supportive care. I spoke with Dr. Castillo, neurosurgeon in [place]. He agreed that the kyphoplasty should go as scheduled on Friday. He also recommended that we do prophylactic DVT dosing of Lovenox dose today and tomorrow, then he can continue the surgery as planned on Friday. He has been off of his Plavix and Mobic. I will also send him home tomorrow with some Chlorhexidine wipes for his preoperative surgical prep as he did not receive his surgical prep in the mail. We will hold on any labs for in the morning with the exception of a BMP. We will plan for discharge tomorrow after he receives his Lovenox injection. We will continue to monitor him closely and follow as needed. Dr. Willis is the collaborating physician available for consultation. #[id number] [facility]
[2017-08-24] MEDS ORDERED: LISINOPRIL 10 MG TAB PO SCH (21:00)
[2017-08-24] MEDS: SIMVASTATIN 20 MG TAB PO SCH (21:08)
[2017-08-24] MEDS: TAMSULOSIN 0.4 MG CAP PO SCH (21:08)
[2017-08-24] MEDS: SODIUM CHLORIDE 0.9% (FLUSH) 10 ML SYG IV SCH (21:08)
[2017-08-25] MEDS: OMEPRAZOLE CAP 20 MG CAP PO SCH (06:00)
[2017-08-25] MEDS: METOPROLOL TARTRATE 50 MG TAB PO SCH ×2 (07:47→17:24)
[2017-08-25] MEDS: SODIUM CHLORIDE 0.9% (FLUSH) 10 ML SYG IV SCH ×2 (08:41→21:10)
[2017-08-25] MEDS: ENOXAPARIN SODIUM 40 MG/0.4 ML SYG SUBCU SCH (08:41)
[2017-08-25] MEDS ORDERED: SODIUM CHLORIDE 0.9% 1000ML 1,000 ML IVS ONE (10:01)
[2017-08-25] MEDS ORDERED: FUROSEMIDE INJ 20 MG/2 ML VIAL IV ONE (12:00)
[2017-08-25] MEDS ORDERED: SOD CHL 3% *HYPERTONIC* 500ML 500 ML IVS ONE ×2 (17:58→18:02)
--- NOTE | 2017-08-25 18:58 | PN ---
DATE: 08/25/17 SUPERVISING PHYSICIAN: Joey Turner M.D. SUBJECTIVE: On exam early this morning the patient was very confused. I spoke with the family and he was to be discharged today home with kyphoplasty to be scheduled in the morning at [facility]. After repeating his lab this morning, his sodium was 122. I gave him a liter of saline and some Lasix. His neurologic status improved greatly. I called Dr. Castillo, neurosurgeon in [place], to update him on the patient's status. I also explained to the family the recommendations per Dr. Castillo and he will be discharged in the morning. Later in the afternoon after giving him the normal saline, his mental status had improved. According to his family, he was at baseline. He had no complaints of chest pain or shortness of breath. OBJECTIVE: VITAL SIGNS: He is afebrile, heart rate 74, blood pressure 173/91, respiratory rate 20, O2 sat is 95% on room air. RESPIRATORY: Essentially clear to auscultation bilaterally. CARDIAC: regular rate and rhythm. GASTROINTESTINAL: Abdomen is soft, nondistended, non-tender. Bowel sounds are positive. NEUROLOGIC: On this afternoon's exam, he is awake, alert and oriented times two. LABORATORY: Sodium this morning was 122, potassium 3.7, chloride 91, carbon dioxide 23, BUN 12, creatinine 0.59, glucose 139, serum osmolality 247.9, calcium 8.5. This afternoon's BNP showed sodium 123. The remainder of his chemistries were virtually unchanged. All other labs and films have been reviewed via the EMR. ASSESSMENT: 1. Acute on chronic hyponatremia with current sodium of 123. He was admitted with a sodium of 125. It improved to 128 and it was back down to 122 this evening. 2. Acute confusional state, questionable transient ischemic attack versus symptomatic hyponatremia. 3. Multiple old thoracic compression fractures awaiting kyphoplasty on August 26 with the patient having been off his Plavix since last Friday. 4. History of previous transient ischemic attacks in December 2012 with the patient being on Plavix. 5. Hypertension poorly controlled. 6. Benign prostatic hypertrophy. 7. Gastroesophageal reflux disease. 8. Hypertension. 9. Hyperlipidemia. PLAN: I spoke with Dr. Castillo this afternoon and he recommended that we give the patient some 3% hypertonic saline and to check his sodium every 3 hours. He felt that if we could get his sodium up to about 127 overnight he could be discharged in the morning so he could be admitted to [facility] for his kyphoplasty. I will give him 3% saline and I will check his BMPs every 3 hours. The results will be called to me. The plan is if his sodium is up to 127 we can discharge him with his family and he can be taken to [facility] for his scheduled kyphoplasty in the morning. We will the Bustamante catheter in due to the patient having surgery in [place] in the morning and they can discontinue it at that time. We will continue to monitor him closely and follow as needed. Dr. Turner is the collaborating physician available for consultation. #[id number] and #[id number] [facility]
[2017-08-25] MEDS: TAMSULOSIN 0.4 MG CAP PO SCH (20:39)
[2017-08-25] MEDS: SIMVASTATIN 20 MG TAB PO SCH (20:39)
[2017-08-25 23:04] VITALS: O2SAT 97
[2017-08-26 04:15] VITALS: BP 137/67; TEMP 97.9
--- NOTE | 2017-08-26 11:57 | DS ---
SUPERVISING PHYSICIAN: Joey Turner MD DISCHARGE DIAGNOSIS: 1. Acute on chronic hyponatremia with current sodium at discharge of 125. He was admitted with a sodium of 125. It improved to 128, dropped to 122, was given hypertonic saline and is now 125. 2. Acute confusional state, questionable transient ischemic attack versus symptomatic hyponatremia. 3. Multiple old thoracic compression fractures awaiting kyphoplasty on August 26 with the patient having been off his Plavix since last Friday. 4. History of previous transient ischemic attacks in December 2012 with the patient being on Plavix. 5. Hypertension poorly controlled. 6. Benign prostatic hypertrophy. 7. Gastroesophageal reflux disease. 8. Hypertension. 9. Hyperlipidemia. HISTORY OF PRESENT ILLNESS: This is an 82-year-old male patient that was brought to the E. R. via EMS after his and daughter noted that he was acting inappropriately and not responding in his normal manner at home. The noted that last night the patient had fallen and this afternoon the patient seemed to be a little bit confused, and then later on when she was talking to him he would not respond. All he would do was smile and laugh, and was unable to produce any words. At that point, she called EMS and the patient was brought to the Emergency Room. Upon arrival to the E. R., the patient's symptoms had essentially resolved. He was able to verbalize and was showing some confusion as to his date which slowly improved as well. He does have a history of previous transient ischemic attacks, the last being in December 2015. At that time, he had an MRI/MRA that was essentially negative as well as carotid Doppler studies that just showed moderate stenosis 40 to 50% on the left side with mild stenosis to the right side. He has been on Plavix which was stopped 5 days ago in preparation for a surgery that he is going to have on Friday. He has multiple compression fractures in his thoracic spine for which they are going to do apparently a kyphoplasty at [facility]. On admission, it was noted that he was hypertensive with a blood pressure initially of 135/101 but was afebrile with a heart rate of 78. His blood pressure did decrease without any intervention down to 180/96 at which time the patient was without any symptoms. Laboratory studies showed he had a normal white count with a normal differential. He does have a history of chronic hyponatremia and a review of his records shows sodium running in the low 130s and currently his sodium on admission this time was 125 with serum osmolality of 253. Liver functions were normal as well as troponin less than 0.02 and TSH of 1.79. Urinalysis just showed a trace of intact blood and toxicology screen was negative for all substances tested. He then had a CT of the head and per radiology interpretation no acute intracranial abnormalities. Dr. Moore, E. R. physician, requested the patient be placed in Observation secondary to his acute confusional state with concerns for a possible transient ischemic attack and further monitoring and correction of the hyponatremia which could possibly be resulting in his acute confusional state. The patient now is going to be placed in Observation status for further treatment and evaluation. He was placed in Observation in stable condition. HOSPITAL COURSE: On his first morning after admission, I spoke with Dr. Castillo , his neurosurgeon in [place], and he agreed that even though he has symptoms of a transient ischemic attack versus hyponatremia that he would benefit from the kyphoplasty as scheduled, we both felt that he needed to be anticoagulated at least a day or so. The plans were to place him on Lovenox on that day and the day prior to surgery and discharge him after his Lovenox injection on Friday. Due to his hyponatremia, he was also placed on fluid restrictions and given some saline. On Friday evening, his IV fluids were stopped. He was taking p.o. fluids well. On Friday morning, he was very confused, he was lethargic. I did some lab at that time and he was found to have a sodium of 122. He was given a liter of normal saline with some Lasix. Lab was redrawn and his sodium was 123. After administration of the normal saline as well as the Lasix, the patient was much more alert and at baseline neurologically. I called Dr. Castillo to inform him of the patient's lab and how he was presenting clinically. He recommended that he be given some 3% hypertonic saline and to do q.3 to 4 hour sodiums to monitor his sodium. He was given hypertonic saline starting at 6 PM at 25 mL per hour. At 9 PM, his sodium was 122. He was given 25 mL for 3 more hours. His sodium was done at midnight and it was 123. His hypertonic saline was increased to 30 mL per hour and at 3 AM, his sodium was 125. The patient was alert, his mental status was at baseline and he received chlorhexidine bath on the evening prior to surgery as well as the morning of surgery and was discharged from the hospital. DISCHARGE PLAN: The patient will be discharged home in stable condition. He is to continue with his appointment for kyphoplasty surgery per Dr. Castillo in [facility]. Labs were sent with the patient. After discharge, he is to followup with Dr. Willis, his primary care physician. DISCHARGE MEDICATIONS: 1. Flomax. 2. Omeprazole. 3. Metoprolol. 4. Lisinopril. 5. Plavix, which is on hold until after surgery. 6. Crestor. 7. Meloxicam, which is on hold until after surgery. 8. Ambien. 9. Calcium. 10. Vitamin D. 11. Tylenol. Dr. Turner is the collaborating physician and available for consultation. #[id number] [facility]
[2017-08-26] MEDS ORDERED: FUROSEMIDE INJ 20 MG/2 ML VIAL IV ONE (12:00)
== END 2017-08-26 04:30 | disposition home or self-care (01) ==
LOC: ER 15:57 → MS 18:12
PROVIDERS: ADMIT Nurse Practitioner Family; ATTEND Nurse Practitioner Acute Care
DX: E87.1 Hypo-osmolality and hyponatremia (principal); R41.0 Disorientation, unspecified; M48.54XA Collapsed vertebra, not elsewhere classified, thoracic region, initial encounter for fracture; I10 Essential (primary) hypertension; N40.0 Benign prostatic hyperplasia without lower urinary tract symptoms; E78.5 Hyperlipidemia, unspecified; K21.9 Gastro-esophageal reflux disease without esophagitis; I44.0 Atrioventricular block, first degree; Z79.02 Long term (current) use of antithrombotics/antiplatelets; Z79.82 Long term (current) use of aspirin; Z79.899 Other long term (current) drug therapy; Z86.73 Personal history of transient ischemic attack (TIA), and cerebral infarction without residual deficits; Z88.1 Allergy status to other antibiotic agents; Z87.891 Personal history of nicotine dependence
CPT/HCPCS: 96361; 96365; 96366; 96372 ×2; 96375; J1940; J7040; J7030 ×2; J1650 ×2; J7799; 80048 ×7; 80307; 36415 ×4; 82550; 82553; 85025; 85730; 85610; 84484; 81001 ×2; 80076; 84443; 83880; 83605; 71045; 70450; 94760 ×9; 99285; 93005; G0378